=== PATIENT | female | born 1955 | race Caucasian/White ===

== ENCOUNTER 2020-05-24 07:16 | Outpatient (CLI) | payer OTHER, SELFPAY ==
--- NOTE | ~2020-05-24 | MM_ITS ---
EXAMINATION: MM screening devi BI w jeancarlos HISTORY: Screening mammogram TECHNIQUE: Craniocaudal and mediolateral oblique 3-D tomosynthesis images were obtained and synthetic 2-D images were generated. CAD analysis was submitted and interpreted. COMPARISON: 05/10/2019 diagnostic right mammogram and limited right breast ultrasound 04/21/2019, 02/15/2018, 07/15/2016 bilateral digital screening mammogram examinations BREAST PARENCHYMAL COMPOSITION: The breasts are extremely dense, which lowers the sensitivity of mamm ography. FINDINGS: Occasional benign calcifications. There is no evidence of suspicious mass, calcification, o r architectural distortion to suggest malignancy in either breast. There has been no suspicious inter suzan change. IMPRESSION: 1. No mammographic evidence of malignancy. 2. Recommend routine screening mammography in one year. BI-RADS Category 2: Benign finding(s). Reviewed, dictated and finalized at location A. INTERN
== END 2020-05-24 07:17 | disposition home or self-care (01) ==
LOC: ANHIMG 07:18
PROVIDERS: PCP Family Medicine; Visit Provider Family Medicine
DX: Z12.31 Encounter for screening mammogram for malignant neoplasm of breast (principal)
CPT/HCPCS: 77063; 77067

== ENCOUNTER 2020-06-14 08:49 | Outpatient (CLI) | payer OTHER, SELFPAY ==
--- NOTE | ~2020-06-14 | DEXA_ITS ---
Bone Density Report Name: Emily Gar Age: 65 Sex: Female Ethnicity: White Date of : 1955 Indication: osteopenia; height loss; Referring Provider: KATYA BELTRE Study: Bone densitometry was performed. Exam Date: June 14, 2020 Accession number: [id number] Bone Density: Region BMD T-score Z-score Classification AP Spine (L1, L2, L3) 0.783 -2.1 -0.5 Osteopenia Femoral Neck (Left) 0.750 -0.9 0.6 Normal Total Hip (Left) 0.871 -0.6 0.6 Normal Total Hip Bilateral Avg 0.896 -0.4 0.8 Normal Femoral Neck (Right) 0.792 -0.5 1.0 Normal Total Hip (Right) 0.920 -0.2 1.0 Normal World Health Organization criteria for BMD impression classify patients as: Normal (T-score at or above -1.0), Osteopenia (T-score between -1.0 and -2.5), or Osteoporosis (T-score at or below -2.5). 10-year Fracture Risk(1): Major Osteoporotic Fracture 7.0% Hip Fracture 0.5% Reported Risk Factors: [place] (), Neck BMD=0.750, BMI=21.5 (1) FRAX(R) Version 3.08. Fracture probability calculated for an untreated patient. Fracture probability may be lower if the patient has received treatment. Previous Exams: Region Exam Age BMD T-score BMD Change BMD Change Date g/cm2 vs Baseline vs Previous AP Spine(L1, L2, L3) 06/14/2020 65 0.783 -2.1 -0.080(-9.2%)# -0.062(-7.4%)* 02/15/2018 62 0.845 -1.6 -0.017(-2.0%)# 0.015(1.8%) 07/12/2015 60 0.830 -1.7 -0.032(-3.8%)# -0.108(-11.5%) 06/30/2013 58 0.938 -0.7 0.076(8.8%)# 0.005(0.6%) 06/30/2011 56 0.933 -0.8 0.071(8.2%)# 0.071(8.2%)# 05/31/2009 54 0.862 -1.4 Total Hip(Left) 06/14/2020 65 0.871 -0.6 -0.008(-0.9%)# -0.025(-2.8%) 02/15/2018 62 0.896 -0.4 0.017(2.0%)# 0.018(2.1%) 07/12/2015 60 0.878 -0.5 -0.001(-0.1%)# 0.020(2.4%)# 06/30/2013 58 0.858 -0.7 -0.021(-2.4%)# 0.002(0.3%) 06/30/2011 56 0.855 -0.7 -0.023(-2.7%)# -0.023(-2.7%)# 05/31/2009 54 0.879 -0.5 Total Hip(Right) 06/14/2020 65 0.920 -0.2 0.054(6.2%)# -0.011(-1.2%) 02/15/2018 62 0.931 -0.1 0.065(7.5%)# 0.014(1.5%) 07/12/2015 60 0.917 -0.2 0.051(5.9%)# 0.072(8.6%)# 06/30/2013 58 0.845 -0.8 -0.022(-2.5%)# -0.009(-1.0%) 06/30/2011 56 0.854 -0.7 -0.013(-1.5%)# -0.013(-1.5%)# 05/31/2009 54 0.867 -0.6 *Denotes significance at 95% confidence level, LSC for AP Spine = 0.022 g/cm2, LSC for Total Hip = 0.027 g/cm2 Clinical Information Provided by Patient: Has used the fo
== END 2020-06-14 08:50 | disposition home or self-care (01) ==
LOC: ANHIMG 08:51
PROVIDERS: PCP Family Medicine; Visit Provider Family Medicine
DX: M85.88 Other specified disorders of bone density and structure, other site (principal)
CPT/HCPCS: 77080

== ENCOUNTER 2021-06-30 07:27 | Outpatient (CLI) | payer MEDICARE, SELFPAY ==
--- NOTE | ~2021-06-30 | MM_ITS ---
EXAMINATION: MM screening devi BI w jeancarlos HISTORY: Screening mammogram, family history of breast cancer in her mother. TECHNIQUE: Craniocaudal and mediolateral oblique 3-D tomosynthesis images were obtained and synthetic 2-D images were generated. CAD analysis was submitted and interpreted. COMPARISON: 05/24/2020, 05/10/2019, 04/21/2019, 02/15/2018 BREAST PARENCHYMAL COMPOSITION: The breasts are extremely dense, which lowers the sensitivity of mamm ography. FINDINGS: There is no evidence of suspicious mass, calcification, or architectural distortion to sugg est malignancy in either breast. There has been no suspicious interval change. IMPRESSION: 1. No mammographic evidence of malignancy. 2. Recommend routine screening mammography in one year. BI-RADS Category 1: Negative Reviewed, dictated and finalized at location A. F PHARMACIST
== END 2021-06-30 07:28 | disposition home or self-care (01) ==
LOC: ANHIMG 07:29
PROVIDERS: PCP Family Medicine; Visit Provider Physician Assistant
DX: Z12.31 Encounter for screening mammogram for malignant neoplasm of breast (principal)
CPT/HCPCS: 77063; 77067

== ENCOUNTER → 2022-01-11 15:58 | Outpatient (CLI) | payer MEDICARE, SELFPAY ==
--- NOTE | ~2022-01-11 | XR_ITS ---
EXAM: XR knee RT min 4V DATE: 01/11/2022 16:11 HISTORY: NO INJURY MEDIAL ANTERIOR RIGHT KNEE PAIN . COMPARISON: None available. FINDINGS: Decreased mineralization. No fracture or dislocation. No lytic or blastic lesion. Moderate medial and severe lateral joint space narrowing. Mild tricompartmental osteophytosis. Small volume j oint effusion. No erosion or periosteal change. Soft tissues within normal limits. IMPRESSION: Tricompartmental knee osteoarthritis, severe in the lateral compartment. Reviewed, dictated and finalized at location K. IMPRESSION: Tricompartmental knee osteoarthritis, severe in the lateral compart ment.
== END ==
PROVIDERS: PCP Family Medicine; Visit Provider Family Medicine
DX: M25.561 Pain in right knee (principal); M17.11 Unilateral primary osteoarthritis, right knee
CPT/HCPCS: 73564

== ENCOUNTER 2022-06-08 07:46 | Outpatient (CLI) | payer MEDICARE, SELFPAY ==
--- NOTE | ~2022-06-08 | US_ITS ---
EXAMINATION: US right upper quadrant DATE: 06/08/2022 08:31 INDICATION: Abdominal pain. TECHNIQUE: Multiple grayscale and Doppler ultrasound images of the abdomen were obtained. COMPARISON: None FINDINGS: The visualized portions of the head, body, and tail of the pancreas are normal. The liver i s normal without focal lesion. There is normal flow in main portal vein. The gallbladder is normal in size. No gallstones or gallbladder wall thickening. There was no sonographic Toribio sign. The common duct is normal and measures 3 mm . IMPRESSION: 1. Normal right upper quadrant ultrasound. Reviewed, dictated and finalized at location A. TERIA FOOD SERVER
== END 2022-06-08 07:47 | disposition home or self-care (01) ==
PROVIDERS: PCP Family Medicine; Visit Provider Family Medicine
DX: R10.84 Generalized abdominal pain (principal)
CPT/HCPCS: 76705

== ENCOUNTER 2022-07-08 10:10 | Day surgery (SDC) | payer MEDICARE, SELFPAY ==
[2022-06-16 10:21] VITALS: BMI 21.9
[2022-06-17 13:51] VITALS: BMI 21.2
[2022-07-08 11:50] VITALS: BP 161/76; PULSE 60; RESP 16; TEMP 36.3; O2SAT 100
[2022-07-08] MEDS: LACTATED RINGERS 1,000 ML 150 ML IV CONT (12:20)
--- NOTE | 2022-07-08 12:24 | P.PNAN_ITS ---
Anes - Initial Pre Proc Eval Procedure: Operation Date: 07/08/22 13:00 Proposed Procedures p Screening Colonoscopy - Skip Stoll MD Date/Time: 07/08/22 12:24 Surgeon: Skip Stoll MD Pre Op Diagnosis: Neoplasm Screening Patient Data Age: 67 Gender: F Height: 2.02 m Weight: 71 kg Last Vital Signs Temp 36.3 C L 07/08/22 11:50 Pulse 60 07/08/22 11:50 Resp 16 07/08/22 11:50 BP 161/76 H 07/08/22 11:50 Pulse Ox 100 07/08/22 11:50 O2 Del Method Room Air 07/08/22 11:50 Allergies Allergy/AdvReac Type Severity Reaction Status Date / Time No Known Allergies Allergy Verified 07/08/22 11:48 Home Medications Medication Instructions Recorded Confirmed Type sodium,potassium,mag sulfates 17.5 See Rx Instructions PO .COMPLEX 06/16/22 Rx gram-3.13 gram-1.6 gram oral soln #354 mL (Suprep Bowel Prep Kit) levothyroxine 88 mcg tablet 88 mcg PO DAILY 06/17/22 07/08/22 History magnesium 30 mg tablet 30 mg PO DAILY 06/17/22 07/08/22 History omega-3 fatty acids 1,000 mg PO DAILY 06/17/22 07/08/22 History Patient hx anesthesia problems: none Family hx anesthesia problems: none Results Review: All pre-operative results and documents have been reviewed as part of the pre- operative evaluation. [facility] Past Medical History Medical History (Updated 07/08/22 @ 12:24 by Samuel Pena MD) Hypothyroidism Surgical History Surgical History (Updated 07/08/22 @ 12:27 by Samuel Pena MD) H/O colonoscopy History of D&C Social History Social History Smoking status: Never smoker Alcohol intake: current Substance use: never Substance use type: does not use Living arrangements: with family Spiritual care concerns: No Anes - Eval Final PreProcedure Day of Procedure 07/08/22 12:24 Patient weight: thin Heart: regular rate and rhythm Lungs: clear to auscultation Airway: Mallampati scale class II Neurological: alert and oriented Last oral intake: >/= 8 hours ASA classification: II Emergent: no Anesthetic plan: proceed Anesthesia type and monitoring: general GIVS and standard monitoring Results Review: All pre-operative results and documents have been reviewed as part of the pre- operative evaluation. Informed Consent: The patient's anesthetic plan and its attendant risks and benefits were discussed with the patient/family/POA. Questions were solicited and answers provided to the satisfaction of the patient/family/POA.
--- NOTE | 2022-07-08 12:45 | P.HP_ITS ---
History of Present Illness History of Present Illness Consent: Risks, benefits, and alternatives have been discussed and questions answered. Patient agrees to proceed with procedure. Chief complaint: Neoplasm Screening Narrative: Emily Gar is a 67 year old female Presents for screening colonoscopy. Patient's current weight appetite and bowel movements are normal. Patient denies abdominal pain. She has had no bleeding. Family history noncontributor y. Patient has previous colonoscopy 10 years ago was unremarkable. Review of Systems Review of Systems: Review of systems noncontributory. [facility] Past Medical History Medical History (Updated 07/08/22 @ 12:46 by Skip Stoll MD) Hypothyroidism Surgical History Surgical History (Updated 07/08/22 @ 12:27 by Samuel Pena MD) H/O colonoscopy History of D&C Social History Social History Smoking status: Never smoker Alcohol intake: current Substance use: never Substance use type: does not use Living arrangements: with family Spiritual care concerns: No Meds Home Medications and Allergies Home Medications Medication Instructions Recorded Confirmed Type sodium,potassium,mag sulfates 17.5 See Rx Instructions PO .COMPLEX 06/16/22 Rx gram-3.13 gram-1.6 gram oral soln #354 mL (Suprep Bowel Prep Kit) levothyroxine 88 mcg tablet 88 mcg PO DAILY 06/17/22 07/08/22 History magnesium 30 mg tablet 30 mg PO DAILY 06/17/22 07/08/22 History omega-3 fatty acids 1,000 mg PO DAILY 06/17/22 07/08/22 History Allergies Allergy/AdvReac Type Severity Reaction Status Date / Time No Known Allergies Allergy Verified 07/08/22 11:48 Vital Signs Vital Signs - 24 hr 07/08/22 11:50 Temperature 97.4 F L Pulse Rate 60 Respiratory Rate 16 Blood Pressure 161/76 H Pulse Oximetry 100 Oxygen Delivery Room Air Exam Narrative: Physical exam reveals patient to be alert. Vital signs stable. HEENT exam is unremarkable. Patient is anicteric. Lungs are clear to the auscultation and percussion. Heart is without murmur or extra sounds. Abdomen bowel sounds are present soft nontender with no organomegaly. Digital external rectal exam is normal. Assessment and Plan Assessment and plan (1) Encounter for screening colonoscopy: Code(s): Z12.11 - Encounter for screening for malignant neoplasm of colon Status: Acute Assessment and Plan: Patient presents today for screening colonoscopy. She appears to be at average risk for colon polyps. Further recommendations may be given after endoscopy.
[2022-07-08] MEDS: SIMETHICONE ORAL SUSPENSION 20 MG/0.3 ML 30 ML BOTTLE 0.6 ML IRRIGATION (13:04)
[2022-07-08 13:15] VITALS: BP 126/77; PULSE 64; RESP 15; O2SAT 100
--- NOTE | 2022-07-08 13:24 | WPDANESPN ---
Anes - Prog Note Post-Op Date/Time: 07/08/22 13:24 Cardiovascular status: normal Respiratory status: normal Airway patency: baseline Mental status: baseline Post-Op hydration status: normal Vital Signs: Last Vital Signs Temp 36.3 C L 07/08/22 11:50 Pulse 64 07/08/22 13:15 Resp 15 07/08/22 13:15 BP 126/77 07/08/22 13:15 Pulse Ox 100 07/08/22 13:15 O2 Del Method Room Air 07/08/22 13:15 Pain Score (VAS): 0/10 I/O: Intake & Output 07/07/22 07/08/22 07/08/22 23:59 07:59 15:59 Intake Total 400 Balance 400 Patient Feedback: Patient satisfied with anesthetic care.
[2022-07-08 13:25] VITALS: BP 142/86; PULSE 57; RESP 15; O2SAT 100
[2022-07-08 13:35] VITALS: BP 147/83; PULSE 61; RESP 16; O2SAT 99
== END 2022-07-08 13:52 | disposition home or self-care (01) ==
PROVIDERS: PCP Family Medicine; Visit Provider Internal Medicine Gastroenterology
PROC: 0DJD8ZZ Inspection of Lower Intestinal Tract, Via Natural or Artificial Opening Endoscopic (ICD-10-PCS; CPT 45378; principal; 2022-07-08 13:00)
DX: Z12.11 Encounter for screening for malignant neoplasm of colon (principal)
CPT/HCPCS: 45378

== ENCOUNTER 2022-07-29 09:41 | Outpatient (CLI) | payer MEDICARE, SELFPAY ==
--- NOTE | ~2022-07-29 | MM_ITS ---
EXAMINATION: MM screening devi BI w jeancarlos HISTORY: Screening mammogram TECHNIQUE: Craniocaudal and mediolateral oblique 3-D tomosynthesis images were obtained and synthetic 2-D images were generated. CAD analysis was submitted and interpreted. COMPARISON: 06/30/2021, 05/24/2020 bilateral screening mammogram examinations BREAST PARENCHYMAL COMPOSITION: The breasts are heterogeneously dense, which may obscure small masses . FINDINGS: Occasional bilateral benign calcifications. Approximately 4 x 7 mm circumscribed opacity is noted in the lower outer quadrant of the right breast on MLO view. Diagnostic right mammogram with skin marker on any skin lesion in the area is recommend ed, with ultrasound if required. Otherwise there is no evidence of suspicious mass, calcification, or architectural distortion to sugg est malignancy in either breast. There has been no other suspicious interval change. IMPRESSION: 1. 4 x 7 mm opacity in the lower outer right breast 2. Diagnostic right mammogram (with skin lesion marker if appropriate) is recommended, with ultrasoun d if required BI-RADS Category 0: Incomplete: Needs additional imaging evaluation. Reviewed, dictated and finalized at location A. RONMENTAL SERVICES SPECIALIST IMPRESSION: 1. 4 x 7 mm opacity in the lower outer right breast 2. Diagnostic right mammogram (with skin lesion marker if appropriate) is recom mended, with ultrasound if required BI-RADS Category 0: Incomplete: Needs additional imaging evaluation.
--- NOTE | ~2022-07-29 | DEXA_ITS ---
Bone Density Report Name: DANICA ECHEVERRIA Age: 67 Sex: Female Ethnicity: White Date of : 1955 Indication: osteopenia; cancer; postmenopausal Referring Provider: MARIBELL FLORES Study: Bone densitometry was performed. Exam Date: July 29, 2022 Accession number: [id number] Bone Density: Region BMD T-score Z-score Classification AP Spine(L1-L4) 0.838 -1.9 0.0 Osteopenia Femoral Neck (Left) 0.722 -1.1 0.4 Osteopenia Total Hip (Left) 0.901 -0.3 1.0 Normal Femoral Neck (Right) 0.719 -1.2 0.4 Osteopenia Total Hip (Right) 0.871 -0.6 0.7 Normal Total Hip Mean 0.886 -0.5 0.9 Normal World Health Organization criteria for BMD impression classify patients as: Normal (T-score at or above -1.0), Osteopenia (T-score between -1.0 and -2.5), or Osteoporosis (T-score at or below -2.5). 10-year Fracture Risk(1): Major Osteoporotic Fracture 8.1% Hip Fracture 0.8% Reported Risk Factors: [place] (), Neck BMD=0.719, BMI=22.4 (1) FRAX(R) Version 3.08. Fracture probability calculated for an untreated patient. Fracture probability may be lower if the patient has received treatment. Previous Exams: Region Exam Age BMD T-score BMD Change BMD Change Date g/cm2 vs Baseline vs Previous AP Spine (L1-L4) 07/29/2022 67 0.838 -1.9 -0.087 (-9.4%) -0.065 (-7.2%) 02/15/2018 62 0.903 -1.3 -0.021 (-2.3%) 0.021 (2.4%) 07/12/2015 60 0.882 -1.5 -0.043 (-4.6%) -0.043 (-4.6%) 06/30/2011 56 0.925 -1.1 Total Hip(Left) 07/29/2022 67 0.901 -0.3 0.046 (5.4%)# 0.030 (3.5%)* 06/14/2020 65 0.871 -0.6 0.016 (1.8%)# -0.025 (-2.8%) 02/15/2018 62 0.896 -0.4 0.041 (4.8%)# 0.018 (2.1%) 07/12/2015 60 0.878 -0.5 0.023 (2.6%)# 0.023 (2.6%)# 06/30/2011 56 0.855 -0.7 Total Hip(Right) 07/29/2022 67 0.871 -0.6 0.017 (2.0%)# -0.050 (-5.4%) 06/14/2020 65 0.920 -0.2 0.067 (7.8%)# -0.011 (-1.2%) 02/15/2018 62 0.931 -0.1 0.078 (9.1%)# 0.014 (1.5%) 07/12/2015 60 0.917 -0.2 0.064 (7.5%)# 0.064 (7.5%)# 06/30/2011 56 0.854 -0.7 *Denotes significance at 95% confidence level, LSC for AP Spine = 0.022 g/cm2, LSC for Total Hip = 0.027 g/cm2 # Denotes dissimilar scan types or analysis methods Clinical Information Provided by Patient: Has used the following medications: Vitamin D, Calcium Has the following medical conditions: Cancer Patient maximum height was 72 Drinks caffeinated beverages Onset of menses at age 17 Number of child
== END 2022-07-29 09:42 | disposition home or self-care (01) ==
LOC: ANHIMG 09:44
PROVIDERS: PCP Family Medicine; Visit Provider Physician Assistant
DX: Z12.31 Encounter for screening mammogram for malignant neoplasm of breast (principal); Z78.0 Asymptomatic menopausal state; R92.8 Other abnormal and inconclusive findings on diagnostic imaging of breast; M85.89 Other specified disorders of bone density and structure, multiple sites
CPT/HCPCS: 77063; 77067; 77080

== ENCOUNTER 2022-08-13 11:43 | Outpatient (CLI) | payer MEDICARE, SELFPAY ==
--- NOTE | ~2022-08-13 | MM_ITS ---
EXAMINATION: MM diagnostic devi RT w jeancarlos HISTORY: Right breast asymmetry on screening mammogram TECHNIQUE: Additional 3-D tomosynthesis images of the right breast were performed and synthetic 2-D i mages were generated. CAD analysis was submitted and interpreted. COMPARISON: 07/29/2022, 06/30/2021, 05/24/2020 FINDINGS: No suspicious mass, calcification, or architectural distortion are identified to suggest ma lignancy. There is a mole of the right breast corresponding to the area of concern on screening mammo gram. IMPRESSION: 1. No mammographic evidence of malignancy. 2. Recommend routine screening mammography in one year. BI-RADS Category 1: Negative Reviewed, dictated and finalized at location A. WOOD FLOOR REFINISHER
== END 2022-08-13 11:44 | disposition home or self-care (01) ==
LOC: ANHIMG 11:46
PROVIDERS: PCP Family Medicine; Visit Provider Family Medicine
DX: R92.8 Other abnormal and inconclusive findings on diagnostic imaging of breast (principal)
CPT/HCPCS: 77061; 77065; G0279

== ENCOUNTER 2023-06-10 16:37 | Outpatient (CLI) | payer MEDICARE, SELFPAY ==
--- NOTE | ~2023-06-10 | XR_ITS ---
XR cervical spine 4-5V DATE: 06/10/2023 17:01 INDICATION: Neck pain TECHNIQUE: AP, open-mouth, lateral, flexion and extension lateral views COMPARISON: None FINDINGS: There is approximately 2 mm anterolisthesis at C3-4 and 1 mm anterolisthesis at C4-5 in fle xion, reduced in extension. C1 and C2 are normally aligned and the odontoid process is intact. No fracture or dislocation or lock ed facet or prevertebral soft tissue swelling is detected. There is severe degenerative disc disease and prominent posterior spurring at C5-6. The remaining cer vical interspaces appear relatively preserved. There is uncovertebral joint spurring particularly at C5-6 bilaterally. IMPRESSION: Severe degenerative disc disease and uncovertebral joint spurring at C5-6 2 mm and 1 mm anterolisthesis at C3-4 and C4-5, respectively, in flexion, reduced in extension Reviewed, dictated and finalized at location B. CTOR QUALITY SYSTEMS IMPRESSION: Severe degenerative disc disease and uncovertebral joint spurring a t C5-6 2 mm and 1 mm anterolisthesis at C3-4 and C4-5, respectively, in flexion, reduc ed in extension
--- NOTE | ~2023-06-10 | XR_ITS ---
XR shoulder RT min 2V DATE: 06/10/2023 17:02 INDICATION: Right shoulder pain TECHNIQUE: 4 views COMPARISON: None FINDINGS: There is mild osteoarthritic spurring at the glenohumeral joint consistent with mild glenoh umeral osteoarthritis. Normal alignment at the acromioclavicular and glenohumeral joints. No fracture or dislocation, periosteal reaction or bone destruction or abnormal soft tissue calcification of the right shoulder is detected. IMPRESSION: Mild right glenohumeral osteoarthritis Reviewed, dictated and finalized at location B. R MACHINE OFFBEARER
== END 2023-06-10 16:38 | disposition home or self-care (01) ==
LOC: ANHIMG 16:38
PROVIDERS: PCP Family Medicine; Visit Provider Physician Assistant
DX: M19.011 Primary osteoarthritis, right shoulder (principal); M43.02 Spondylolysis, cervical region; M50.322 Other cervical disc degeneration at C5-C6 level
CPT/HCPCS: 72050; 73030

== ENCOUNTER → 2023-07-07 15:12 | Outpatient (CLI) | payer MEDICARE, SELFPAY ==
--- NOTE | ~2023-07-07 | MR_ITS ---
EXAMINATION: MR cervical spine wo con DATE: 07/07/2023 15:39 INDICATION: Cervical radiculopathy. TECHNIQUE: Magnetic resonance imaging (MRI) of the cervical spine was performed without intravenous c ontrast. Sequences included sagittal T2-weighted FSE, sagittal T2-weighted FS FSE, sagittal T1-weight ed FSE, axial MERGE, and axial T2-weighted FSE. COMPARISON: Cervical spine radiographs 06/10/2023 FINDINGS: There is 4 degrees dextrocurvature of cervical spine. There is 2 mm retrolisthesis of C5 on C6. Vertebral body heights are normal. There is severely decreased disc height at C5-C6 with endplat e remodeling. The spinal cord signal intensity is normal. The following disc levels are specifically discussed: C2-C3: The disc does not extend beyond the endplate margin. There is no uncovertebral joint osteoarth ritis. There is moderate right and severe left facet joint osteoarthritis. There is mild left neural foraminal stenosis. There is no central canal stenosis. C3-C4: The disc does not extend beyond the endplate margin. There is mild right uncovertebral joint o steoarthritis. There is severe bilateral facet joint osteoarthritis. There is mild right neural kim inal stenosis. There is no central canal stenosis. C4-C5: The disc does not extend beyond the endplate margin. There is mild bilateral uncovertebral laura nt osteoarthritis. There is severe bilateral facet joint osteoarthritis. There is no neural foraminal stenosis. There is no central canal stenosis. C5-C6: The disc is bulging. There is severe bilateral uncovertebral joint osteoarthritis. There is mo derate bilateral facet joint osteoarthritis. There is moderate right and mild left neural foraminal s tenosis. There is mild central canal stenosis. C6-C7: The disc does not extend beyond the endplate margin. There is mild bilateral uncovertebral laura nt osteoarthritis. There is severe right and moderate left facet joint osteoarthritis. There is mild right neural foraminal stenosis. There is no central canal stenosis. C7-T1: There is a right central extrusion. There is no uncovertebral joint osteoarthritis. There is m oderate right and severe left facet joint osteoarthritis. There is mild bilateral neural foraminal st enosis. There is no central canal stenosis. IMPRESSION: 1. Severe spondylosis at C5-C6 and mild spondylosis at other levels. Reviewed, dictated and finalized at location A. T PLEATER
== END ==
PROVIDERS: PCP Family Medicine; Visit Provider Orthopaedic Surgery
DX: M43.02 Spondylolysis, cervical region (principal)
CPT/HCPCS: 72141

== ENCOUNTER → 2023-08-01 11:05 | Outpatient (CLI) | payer MEDICARE, SELFPAY ==
--- NOTE | ~2023-08-01 | MR_ITS ---
MRI of the right shoulder Technique: Axial proton-density fat-sat images, coronal proton density fat-sat and T2 fat-sat images, and sagittal T1-weighted and T2 fat-sat images were acquired. Clinical History: Pain Findings: There is minimal AC joint degenerative change. Coracoclavicular, coracoacromial, coracohume ral ligaments are intact. There is a probable 3 mm linear low-grade partial thickness articular surface tear at the distal supr aspinatus tendon insertion. There is a focal low-grade interstitial tear along the posterior aspect o f the supraspinatus tendon. Infraspinatus tendon is intact. There is mild tendinosis of these tendons . Subscapularis tendon is intact, mild tendinosis. Tendon of the long head of the biceps is intact. Probable focal superior labral tear. Inferior glenohumeral ligament is intact. There is mild chondral thinning of the glenohumeral joint. No significant joint effusion. There is minimal fluid in the subacromial/subdeltoid bursa. No muscle atrophy or edema. Impression: 3 mm linear low-grade partial thickness articular surface tear at the distal supraspinatus tendon ins ertion. Separate focal low-grade interstitial tear at the posterior aspect of the supraspinatus tendon. Rotator cuff tendinosis. Reviewed, dictated and finalized at [facility]. CIATE DIRECTOR Impression: 3 mm linear low-grade partial thickness articular surface tear at the distal pitts praspinatus tendon insertion. Separate focal low-grade interstitial tear at the posterior aspect of the supra spinatus tendon. Rotator cuff tendinosis.
== END ==
PROVIDERS: PCP Family Medicine; Visit Provider Orthopaedic Surgery
DX: M75.111 Incomplete rotator cuff tear or rupture of right shoulder, not specified as traumatic (principal); M75.31 Calcific tendinitis of right shoulder
CPT/HCPCS: 73221

== ENCOUNTER 2023-09-01 09:14 | Outpatient (CLI) | payer MEDICARE, SELFPAY ==
--- NOTE | ~2023-09-01 | MR_ITS ---
EXAMINATION: MR knee RT wo con DATE: 09/01/2023 09:45 INDICATION: Right knee pain. TECHNIQUE: Magnetic resonance imaging (MRI) of the right knee was performed without intravenous contr ast. Sequences included axial PD-weighted FS FSE, coronal PD-weighted FSE and PD-weighted FS FSE, sag ittal PD-weighted FSE, and sagittal T2-weighted FS FSE. COMPARISON: None. FINDINGS: Medial compartment: There is an undersurface horizontal tear of body and posterior horn of medial meniscus. There is shal low partial-thickness cartilage loss of tibial condyle. There is full-thickness cartilage loss of fem oral condyle involving the central articular surface. Lateral compartment: There is a complex tear involving anterior horn, body, and posterior horn of lateral meniscus. There is full-thickness cartilage loss of tibial condyle involving the central and lateral articular surfac e with mild subchondral edema-like marrow signal intensity. There is full-thickness cartilage loss of femoral condyle involving the central and posterior articular surface with mild subchondral edema-li ke marrow signal intensity. Patellofemoral compartment: There is deep partial thickness cartilage loss of patellar medial facet, median ridge, and lateral fa cet with mild subchondral edema-like marrow signal intensity. There is shallow partial-thickness cart ilage loss of trochlea. Ligaments and tendons: There is a complete tear of anterior cruciate ligament. Posterior cruciate ligament is normal. There are changes of prior sprains of medial collateral ligament and fibular collateral ligament characteri zed increased signal intensity proximally. There is mild patellar tendinopathy. Fluid: There is a small knee joint effusion. There is a small ruptured Herrmann's cyst. IMPRESSION: 1. 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 2. Complete tear of anterior cruciate ligament. 3. Tears of medial and lateral menisci. 4. Small knee joint effusion. 5. Small ruptured Herrmann's cyst. Reviewed, dictated and finalized at location A. IMPRESSION: 1. 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 2. Complete tear of anterior cruciate ligament. 3. Tears of medial and lateral menisci. 4. Small knee joint effusion. 5. Small ruptured Herrmann's cyst.
== END 2023-09-01 09:15 ==
LOC: MICIMG 09:15
PROVIDERS: PCP Family Medicine; Visit Provider Physician Assistant
DX: M25.561 Pain in right knee (principal); M22.2X1 Patellofemoral disorders, right knee; S83.511A Sprain of anterior cruciate ligament of right knee, initial encounter; S83.281A Other tear of lateral meniscus, current injury, right knee, initial encounter; S83.241A Other tear of medial meniscus, current injury, right knee, initial encounter; M25.461 Effusion, right knee; M71.21 Synovial cyst of popliteal space [Baker], right knee
CPT/HCPCS: 73721

== ENCOUNTER 2023-09-13 13:53 | Outpatient (CLI) | payer MEDICARE, SELFPAY ==
--- NOTE | ~2023-09-13 | XR_ITS ---
XR knee RT min 4V 09/13/2023 14:10 Indication: Right knee pain Procedure: 4 views right knee Comparison: 01/11/2022 Findings: There is tricompartment osteoarthritis, most advanced in lateral compartment. No fracture o r traumatic malalignment. No significant joint effusion. No foreign bodies. There is a possible old h ealed lateral tibial plateau fracture. 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 Reviewed, dictated and finalized at location A. 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
== END 2023-09-13 13:54 ==
LOC: MICIMG 13:54
PROVIDERS: PCP Orthopaedic Surgery; Visit Provider Physician Assistant
DX: M17.11 Unilateral primary osteoarthritis, right knee (principal)
CPT/HCPCS: 73564

== ENCOUNTER 2023-11-09 09:39 | Outpatient (CLI) | payer MEDICARE, SELFPAY ==
--- NOTE | ~2023-11-09 | MM_ITS ---
EXAMINATION: MM screening devi BI w jeancarlos HISTORY: Screening TECHNIQUE: Craniocaudal and mediolateral oblique 3-D tomosynthesis images were obtained and synthetic 2-D images were generated. CAD analysis was submitted and interpreted. COMPARISON: Comparison to multiple prior studies sequentially, with oldest reviewed study dated 04/06. BREAST PARENCHYMAL COMPOSITION: Dense: The breasts are heterogeneously dense, which may obscure small masses FINDINGS: There is no evidence of suspicious mass, calcification, or architectural distortion to sugg est malignancy in either breast. There has been no suspicious interval change. IMPRESSION: 1. No mammographic evidence of malignancy. 2. Recommend routine screening mammography in one year. BI-RADS Category 1: Negative Reviewed, dictated and finalized at location B.
== END 2023-11-09 09:40 | disposition home or self-care (01) ==
LOC: ANHIMG 09:43
PROVIDERS: PCP Physician Assistant; Visit Provider Physician Assistant
DX: Z12.31 Encounter for screening mammogram for malignant neoplasm of breast (principal)
CPT/HCPCS: 77063; 77067

== ENCOUNTER 2024-01-24 17:39 | Emergency (ER) | payer MEDICARE, SELFPAY ==
--- NOTE | ~2024-01-24 | XR_ITS ---
EXAMINATION: XR knee RT min 4V DATE: 01/24/2024 19:41 INDICATION: Right knee pain post fall TECHNIQUE: Anteroposterior, 2 oblique and crosstable lateral views of the right knee were obtained COMPARISON: None. FINDINGS: Alignment is normal. No fracture. Severe joint space narrowing the lateral compartment seen on the l ateral imaging. Small marginal osteophytes in all 3 compartments. Minimal right knee joint effusion a t the suprapatellar pouch without layering lipohemarthrosis. Soft tissues are unremarkable. IMPRESSION: 1. Minimal right knee joint effusion with no acute osseous abnormality. 2. Tricompartmental osteoarthritis, severe in the lateral compartment. Reviewed, dictated and finalized at location A.
--- NOTE | ~2024-01-24 | XR_ITS ---
CORRECTED REPORT Changed LEFT to RIGHT under Impressions [facility] [place] 01/30/24 This report was recreated on 01/30/24. Original report was C EXAMINATION: XR ankle RT min 3V, XR foot RT min 3V DATE: 01/24/2024 18:09 INDICATION: Twisting right ankle injury TECHNIQUE: 1. Anteroposterior, mortise and lateral view of the right ankle were obtained. 2. Dorsoplantar, oblique and lateral views of the right foot were obtained. COMPARISON: None. FINDINGS: There is an oblique fracture through the distal fibula with a fracture plane exiting medially at the level of the tibiotalar joint. 3-4 mm posterolateral displacement. No other fracture identified. Specifically the medial and posterior malleoli as well as the talar dome are intact. Ankle mortise remains congruent with no appreciable widening of the medial clear space. Typical pattern of mild polyarticular osteoarthritis at the right first metatarsophalangeal and a few tarsometatarsal and interphalangeal joints. There is an ankle joint effusion and prominent soft tissue swelling about the lateral malleolus. IMPRESSION: 1. . 4 mm posterior displacement of an oblique fracture of the distal RIGHT fibula consistent with a Maher type B injury pattern. Reviewed, dictated and finalized at location A. MTDD IMPRESSION: 1. . 4 mm posterior displacement of an oblique fracture of the distal left fibu la consistent with a Maher type B injury pattern.
[2024-01-24 17:53] VITALS: BP 150/64; PULSE 62; RESP 16; TEMP 36.4; O2SAT 95
--- NOTE | 2024-01-24 18:00 | ED.LOWEXIN ---
HPI - Extremity Injury (Lower) General Chief Complaint: Extremity Injury, Lower Stated Complaint: R foot injury Time Seen by Provider: 01/24/24 19:05 Focused HPI: GENERAL: Well-appearing, well-nourished, and in no acute distress. HEAD: Normocephalic, atraumatic. CHEST: Clear to auscultation. No respiratory distress. HEART: Regular rate and rhythm. NEURO: Alert and oriented x3. Patient screened in triage and initial orders placed. Additional care and disposition to be based upon diagnostic testing and treatment. 68-year-old female presents emergency room for evaluation of right ankle injury. Patient states that she misstepped walking down the stairs twisting her right ankle. Injury occurred just prior to arrival. Patient placed ankle and foot into an Brad bandage. Unable to bear weight. Related Data Home Medications Medication Instructions Recorded Confirmed magnesium 30 mg tablet 30 mg PO DAILY 06/17/22 09/30/23 mecobalamin (vitamin B12) 1,000 1,000 mcg PO DAILY 03/16/23 09/30/23 mcg lozenges naproxen sodium 220 mg capsule 220 mg PO Q12H PRN 03/16/23 09/30/23 omega 3-uju-gku-fish oil 1,200 mg cap PO 03/16/23 09/30/23 (144 mg-216 mg) capsule (Fish Oil) ascorbate calcium (vitamin C) 500 500 mg PO DAILY 09/30/23 09/30/23 mg tablet Allergies Allergy/AdvReac Type Severity Reaction Status Date / Time No Known Allergies Allergy Verified 01/24/24 18:52 PMFSH Past Medical History Medical History Anemia Hypothyroidism Surgical History Surgical History H/O colonoscopy History of D&C 1985 History of surgical removal of skin lesion basal cell cancer left back 04/09/2011 Family History Family History Father Hypertension Atrial fibrillation Mother Hypertension Congestive heart failure COPD (chronic obstructive pulmonary disease) Crohn's disease Grandparent Acute myocardial infarction Social History Social History Smoking status: Never smoker Alcohol intake: current Substance use: never Substance use type: does not use Do You Feel Safe in your Home?: Yes Lack of Transportation: No Lack of Food: Never True Current Housing: I Have Housing Concerned About Future Housing: No Difficulty Paying Gas/Electric Bills: No Difficulty Paying for Meds: No Currently Unemployed: No Education: Bachelor's Degree Living arrangements: with family Occupation/Education: retired Gender identity (if verbalized by the patient): Female Sexual Orientation (if Verbalized by the Patient): Straight or Heterosexual Spiritual care concerns: No Course Vital Signs Vital signs: Vital Signs Temperature 97.6 F 01/24/24 17:53 Pulse Rate 62 01/24/24 17:53 Respiratory Rate 16 01/24/24 17:53 Blood Pressure 150/64 H 01/24/24 17:53 Pulse Oximetry 95 01/24/24 17:53 Temperature 97.6 F 01/24/24 17:53 Pulse Rate 66 01/24/24 20:54 Respiratory Rate 15 01/24/24 20:54 Blood Pressure 152/74 H 01/24/24 20:54 Pulse Oximetry 100 01/24/24 20:54 Discharge Plan Discharge Clinical Impression: Fibula fracture, Osteoarthritis of right knee Patient Disposition: Home, Self-Care Condition: Stable Instructions: Antibiotic Form, Ankle Fracture (DC), Knee Pain (ED) Additional Instructions: you were evaluated in the emergency department for right knee and ankle pain after mechanical injury that occurred prior to arrival. The x-ray of your knee shows osteoarthritis but no broken bones. The x-ray of your ankle shows a break to your fibula and concern for deltoid ligament injury as discussed. Please wear the splint as directed and follow-up closely with the orthopedist he. You can take Tylenol 500 mg as needed
--- NOTE | 2024-01-24 19:34 | ED.LOWEXIN ---
HPI - Extremity Injury (Lower) General Chief Complaint: Extremity Injury, Lower Stated Complaint: R foot injury Time Seen by Provider: 01/24/24 19:05 History of Present Illness HPI Narrative: 68-year-old female presents to the emergency department for right ankle injury that occurred prior to arrival. Patient states she was walking up the stairs when she slipped and inverted her right ankle. States she landed on her right knee. She is reporting pain and swelling to the right ankle and minimal pain to the right knee. She denies hitting her head or losing consciousness, denies other injuries acquired. She has not taken anything for pain. patient has seen Dr. Magana in the past for knee injuries. Related Data Home Medications Medication Instructions Recorded Confirmed magnesium 30 mg tablet 30 mg PO DAILY 06/17/22 09/30/23 mecobalamin (vitamin B12) 1,000 1,000 mcg PO DAILY 03/16/23 09/30/23 mcg lozenges naproxen sodium 220 mg capsule 220 mg PO Q12H PRN 03/16/23 09/30/23 omega 1-oot-mrl-fish oil 1,200 mg cap PO 03/16/23 09/30/23 (144 mg-216 mg) capsule (Fish Oil) ascorbate calcium (vitamin C) 500 500 mg PO DAILY 09/30/23 09/30/23 mg tablet Allergies Allergy/AdvReac Type Severity Reaction Status Date / Time No Known Allergies Allergy Verified 01/24/24 18:52 Review of Systems Review of Systems: All systems reviewed & are unremarkable except as noted in HPI and below PMFSH Past Medical History Medical History Anemia Hypothyroidism Surgical History Surgical History H/O colonoscopy History of D&C 1985 History of surgical removal of skin lesion basal cell cancer left back 04/09/2011 Family History Family History Father Hypertension Atrial fibrillation Mother Hypertension Congestive heart failure COPD (chronic obstructive pulmonary disease) Crohn's disease Grandparent Acute myocardial infarction Social History Social History Smoking status: Never smoker Alcohol intake: current Substance use: never Substance use type: does not use Do You Feel Safe in your Home?: Yes Lack of Transportation: No Lack of Food: Never True Current Housing: I Have Housing Concerned About Future Housing: No Difficulty Paying Gas/Electric Bills: No Difficulty Paying for Meds: No Currently Unemployed: No Education: Bachelor's Degree Living arrangements: with family Occupation/Education: retired Gender identity (if verbalized by the patient): Female Sexual Orientation (if Verbalized by the Patient): Straight or Heterosexual Spiritual care concerns: No Exam Narrative: GENERAL: Well-appearing, well-nourished, and in no acute distress. HEAD: Normocephalic, atraumatic. ENT: Nares clear, no rhinorrhea or epistaxis. Mucous membranes moist. NECK: No midline cervical spinous tenderness, step-offs or deformities BACK: no midline thoracolumbar spinous tenderness, step-offs or deformities CHEST: Clear to auscultation. No respiratory distress. HEART: Regular rate and rhythm. No murmur heard. Normal peripheral pulses. EXTREMITIES: RLE: diffuse edema to the ankle with tenderness to the medial and lateral malleolus, mild ecchymosis developing over the lateral malleolus. DP pulses 2+. Sensation intact. Cap refill less than 2. Minimal tenderness to the right knee with full range of motion. No tenderness with hip remainder of lower extremity. Negative Daily's test. Compartments soft throughout SKIN: Warm, dry, no rash. NEURO: No focal deficits. Alert and oriented x3 Course Vital Signs Vital signs: Vital Signs Temperature 97.6 F 01/24/24 17:53 Pulse Rate 62 01/24/24 17:53 Respiratory Rate 16 01/24/24 17:53 B
[2024-01-24 20:54] VITALS: BP 152/74; PULSE 66; RESP 15; O2SAT 100
== END 2024-01-24 20:55 | disposition home or self-care (01) ==
PROVIDERS: Emergency Provider Physician Assistant; PCP Physician Assistant
DX: S82.831A Other fracture of upper and lower end of right fibula, initial encounter for closed fracture (principal); M17.11 Unilateral primary osteoarthritis, right knee; E03.9 Hypothyroidism, unspecified; Z86.2 Personal history of diseases of the blood and blood-forming organs and certain disorders involving the immune mechanism; W10.9XXA Fall (on) (from) unspecified stairs and steps, initial encounter; X50.9XXA Other and unspecified overexertion or strenuous movements or postures, initial encounter
CPT/HCPCS: 29515; 73564; 73610; 73630; 99284

== ENCOUNTER 2024-01-30 00:09 | Day surgery (SDC) | payer MEDICARE, SELFPAY ==
[2024-01-26 11:09] VITALS: BMI 21.4
--- NOTE | 2024-01-26 11:19 | PC.NURSE ---
Report to the Outpatient Waiting Room, entrance under the green pavilion located off [facility], at time _1pm_ on date _[id number]_. Planned Procedure Time: _3pm_.? Time changes happen often and if your time is changed the preop area will call you the afternoon before. - You and your visitor will be asked to self-screen and do not enter if you have any COVID symptoms. Please call surgeon if you need to reschedule. - A mask is optional within the hospital at this time. Patients may have clear liquids (water, carbonated beverages, clear teas, apple juice) until 3 hours prior to surgery with a maximum of 20 ounces. - No food from midnight until time of surgery and no smoking Take only the following medications with a SIP of water on the morning of surgery: ___Levothyroxine and if needed pain medicine DO NOT STOP ANY OF YOUR OTHER PRESCRIPTION MEDICATIONS PRIOR TO SURGERY EXCEPT THE FOLLOWING Medications to discontinue per physician ____Stop Naproxen now, Stop all vitamins and fish oil [phone]____ Please no make-up, nail [place], hairspray, perfume, deodorant, or body powder the day of surgery.? No jewelry (including any body piercings) or valuables the day of surgery, leave them at home.? Please take a shower or bath the night before, or the morning of, surgery with an antibacterial soap.? Wear comfortable, loose fitting clothing.? - Jewelry must be removed prior to entering the operating room.? Rings and piercings that are not removed may be cut off. - The hospital will not accept responsibility for valuables.? - Please leave all valuables, including medications, at home the day of surgery. If you are going home after surgery, a licensed home delivery driver must drive you home.? - NO public transportation without another adult if you receive anesthesia. - We recommend that an adult stay with you for 24 hours following discharge. - We also recommend that you do not drive, make important decision, drink alcoholic beverages, or take any drugs that were not prescribed by your health care provider for at least 24 hours after your discharge time. Follow any additional instructions given to you from your surgeon. Telephone instructions given to __Debra__and asked if any additional questions and then verbalized understanding. Patient advised to call surgeon office or pre surgery nurse liaison [phone] if any additional questions.
[2024-01-30] VITALS (8 sets, daily range): BP systolic 111–156; BP diastolic 59–82; PULSE 57–78; RESP 10–18; TEMP 36.3–36.4; O2SAT 94–99
--- NOTE | ~2024-01-30 | XR_ITS ---
EXAMINATION: XR surgery orthopedic DATE: 01/30/2024 16:21 INDICATION: Right ankle fracture. TECHNIQUE: 6 intraoperative fluoroscopic views of right ankle were obtained. I was not present. Fluor oscopy exposure time was 66 seconds. COMPARISON: Right ankle radiographs 01/24/2024 FINDINGS: There is an oblique fracture of distal fibula status post reduction internal fixation in ne ar-anatomic alignment with lateral plate and screws. IMPRESSION: 1. Oblique fracture of distal fibula status post reduction internal fixation. Reviewed, dictated and finalized at location A.
[2024-01-30 13:50] LABS: Hematocrit 41.8 % (37.0-47.0); Hemoglobin 14.4 g/dL (12.0-15.0)
--- NOTE | 2024-01-30 14:12 | WPDANESEPPF ---
Anes - Initial Pre Proc Eval Procedure: Operation Date: 01/30/24 15:00 Proposed Procedures p Open Reduction Internal Fixation Lateral Malleolus Fracture Right Ankle - Daniel Magana MD Date/Time: 01/30/24 14:12 Surgeon: Daniel Magana MD Pre Op Diagnosis: right ankle fracture Patient Data Age: 68 Gender: F Height: 1.83 m Weight: 71.8 kg Allergies Allergy/AdvReac Type Severity Reaction Status Date / Time No Known Allergies Allergy Verified 01/26/24 11:06 Home Medications Medication Instructions Recorded Confirmed Type mecobalamin (vitamin B12) 1,000 1,000 mcg PO DAILY 03/16/23 01/26/24 History mcg lozenges naproxen sodium 220 mg capsule 220 mg PO Q12H PRN Pain 03/16/23 01/26/24 History omega 0-cir-tid-fish oil 1,200 mg 1 cap PO DAILY 03/16/23 01/26/24 History (144 mg-216 mg) capsule (Fish Oil) ferrous sulfate 325 mg (65 mg 325 mg PO DAILY #30 tabs 03/17/23 01/26/24 Rx iron) tablet (Feosol) levothyroxine 88 mcg tablet See Rx Instructions .Route 07/05/23 01/26/24 Rx .COMPLEX #100 tabs ascorbate calcium (vitamin C) 500 500 mg PO DAILY 09/30/23 01/26/24 History mg tablet hydrocodone 5 mg-acetaminophen 325 1 tablet PO Q8H PRN pain #14 tabs 01/24/24 01/26/24 Rx mg tablet calcium carbonate 500 mg-vitamin 1 tablet PO DAILY 01/26/24 01/26/24 History D3 3.125 mcg (125 unit) tablet magnesium 500 mg tablet 500 mg PO DAILY 01/26/24 01/26/24 History ifqrqwwd-hvot-zjfa 8 mg-folic 400 1 tablet PO DAILY 01/26/24 01/26/24 History mcg-K 50 mcg-lutein 300 mcg tablet (Multivitamin Women 50 Plus) Laboratory Tests 01/30/24 13:45 Hgb 14.4 g/dL (12.0-15.0) Hct 41.8 % (37.0-47.0) Patient hx anesthesia problems: none Family hx anesthesia problems: none Results Review: All pre-operative results and documents have been reviewed as part of the pre-operative evaluation. [facility] Past Medical History Medical History Anemia Hypothyroidism Surgical History Surgical History H/O colonoscopy History of D&C 1985 History of surgical removal of skin lesion basal cell cancer left back 04/09/2011 Family History Family History Father Hypertension Atrial fibrillation Mother Hypertension Congestive heart failure COPD (chronic obstructive pulmonary disease) Crohn's disease Grandparent Acute myocardial infarction Social History Social History Smoking status: Never smoker Alcohol intake: current Drinks per week: 3 Substance use: never Substance use type: does not use Do You Feel Safe in your Home?: Yes Lack of Transportation: No Lack of Food: Never True Current Housing: I Have Housing Concerned About Future Housing: No Difficulty Paying Gas/Electric Bills: No Difficulty Paying for Meds: No Currently Unemployed: No Education: Bachelor's Degree Difficulty w/ Childcare or Family Care: No Living arrangements: with family Occupation/Education: retired Gender identity (if verbalized by the patient): Female Sexual Orientation (if Verbalized by the Patient): Straight or Heterosexual Spiritual care concerns: No Anes - Eval Final PreProcedure Day of Procedure 01/30/24 14:12 Patient weight: normal Heart: regular rate and rhythm Lungs: clear to auscultation Airway: Mallampati scale class II Neurological: alert and oriented Last oral intake: >/= 8 hours ASA classification: II Emergent: no Anesthetic plan: proceed Anesthesia type and monitoring: general LMA and standard monitoring Results Review: All pre-operative results and documents have been reviewed as part of the pre-operative evaluation. Informed Consent: The patient's anesthetic plan and its attendant risks and benefits we
--- NOTE | 2024-01-30 14:56 | WPDHPUPDATE1 ---
History and Physical Update Update Date/Time: 01/30/24 14:56 History and Physical has been reviewed, including an updated exam of the patient. There are NO changes in the patient's condition. Risks, benefits, and alternatives have been discussed and questions answered. Patient agrees to proceed with procedure.
[2024-01-30] MEDS: LACTATED RINGERS 1,000 ML 30 ML IV CONT ×2 (15:00→17:05)
[2024-01-30] MEDS: ACETAMINOPHEN 500 MG TABLET 1000 MG PO (15:00)
[2024-01-30] MEDS: KETOROLAC 15 MG/ML VIAL (*BKC) IV PUSH (15:00)
[2024-01-30] MEDS: ceFAZolin SODIUM 1 GM VIAL 2 GM IV PUSH (15:08)
[2024-01-30] MEDS: BUPIVACAINE/EPINEPHRINE 0.5% 50 ML VIAL 30 ML INFILTRATE (16:18)
--- NOTE | 2024-01-30 16:55 | W.PM.PROC2 ---
Procedure Note - Detailed Date of Procedure 01/30/24 Pre-op Diagnosis Displaced right ankle lateral malleolus fracture. Post-op Diagnosis Other (Displaced right ankle lateral malleolus and posterior malleolus fractures) Procedure Performed ORIF right ankle fracture with internal fixation of the lateral malleolus Surgeon Daniel Magana MD Scientific Research Associate Naomie Villagran PA-C Anesthesia General Findings Significant osteopenia noted. Cancellous screws required in the fibula. Locking screws distally. Significant anterior comminution of the fracture and displacement noted of the 20 percent posterior malleolar fragment. This reduced nearly anatomically after fixation of the fibula. Description of Procedure A general anesthetic was administered. The limb was prepped and draped in the usual sterile fashion with a well-padded tourniquet high on the thigh. A bump was placed under the hip. The limb was exsanguinated and the tourniquet inflated to 300 millimeters of mercury during the procedure. A longitudinal incision was created at the distal fibula. Careful dissection was carried down to bone. There was a fibular nerve branch right across the fracture site. This was sacrificed sharply to avoid neuroma. The fracture was carefully exposed. Callus and debris was irrigated from the wound. The bone quality was quite poor. There was significant comminution of the anterior distal fibular fragment. The fracture was brought out to length. Reduction was accomplished with the reduction forceps. The fixation plate fit anatomically. Fixation was performed with a combination of cortical locking screws distally and cancellous screws proximally. Fluoroscopy was used throughout the procedure to confirm anatomic reduction and appropriate placement of the implants. The ankle mortise was tested with the Cotton test and found to be stable. A moderately sized posterior malleolar fragment reduced anatomically after reduction and fixation of the fibula. The tourniquet was released. Meticulous hemostasis was obtained. The wound was closed in layers with 2-0 Vicryl suture 3-0 Monocryl suture and 3-0 nylon. A sterile dressing with well padded posterior with stir-up splint was applied. The patient was extubated and brought to the recovery room in stable condition. There were no complications. Physician preschool assistant principal, Naomie Villagran PA-C, required for surgery; including patient positioning, draping, tissue retraction, maintaining instrument position, assisting with fracture reduction and internal fixation, wound closure, and splint fabrication. Implants Arthrex Lateral malleolus anatomic stainless steel plate and screws Estimated Blood Loss 20 Drains No Packing No Pathology None sent Complications No immediate complications Condition Stable Disposition PACU [facility] Billing Surgery - Charge Forward: Surgery Billing
[2024-01-30] MEDS: oxyCODONE HCL (*CRX) 5 MG TAB IR PO (17:35)
== END 2024-01-30 18:17 | disposition home or self-care (01) ==
PROVIDERS: Anesthesiology; PCP Physician Assistant; Visit Provider Orthopaedic Surgery
PROC: (CPT 27792; principal; 2024-01-30 15:00)
DX: S82.61XA Displaced fracture of lateral malleolus of right fibula, initial encounter for closed fracture (principal); M85.88 Other specified disorders of bone density and structure, other site; D64.9 Anemia, unspecified; E03.9 Hypothyroidism, unspecified; Z79.1 Long term (current) use of non-steroidal anti-inflammatories (NSAID); Z79.891 Long term (current) use of opiate analgesic; Z98.890 Other specified postprocedural states; Z85.828 Personal history of other malignant neoplasm of skin; Z82.49 Family history of ischemic heart disease and other diseases of the circulatory system; X58.XXXA Exposure to other specified factors, initial encounter
CPT/HCPCS: 27792; 36415; 85014; 85018; 99199; A9270; C1713; J0690; J1100; J1170; J1885; J2250; J2405; J2704; J3010; J7120

== ENCOUNTER 2024-02-13 08:06 | Outpatient (CLI) | payer MEDICARE, SELFPAY ==
--- NOTE | ~2024-02-13 | XR_ITS ---
XR ankle RT min 3V Ordering provider: Daniel Magana MD History: . S82.61XA - Displaced fracture of lateral malleolus of rig... . Comparison: None. FINDINGS: BONES: Postoperative changes in the distal fibula. Fracture line is seen at the same area. Cast is se en in the area of the foot and the leg. JOINT SPACES: Normal. SOFT TISSUES: Normal. IMPRESSION: Fracture in the distal fibula with postoperative changes. Status post placement in a cast. Reviewed, dictated and finalized at location A.
== END 2024-02-13 08:07 | disposition home or self-care (01) ==
PROVIDERS: PCP Physician Assistant; Visit Provider Orthopaedic Surgery
DX: S82.61XA Displaced fracture of lateral malleolus of right fibula, initial encounter for closed fracture (principal); Z98.890 Other specified postprocedural states
CPT/HCPCS: 73610

== ENCOUNTER 2024-03-12 09:35 | Outpatient (CLI) | payer MEDICARE, SELFPAY ==
--- NOTE | ~2024-03-12 | XR_ITS ---
Right ankle Technique: AP, oblique, and lateral views were obtained. Clinical History: Postoperative follow-up COMPARISON: 02/13/2024 Findings: Status post ORIF of the distal fibula. Osseous alignment is unchanged. Orthopedic hardware unchanged. Ankle mortise and other visualized joint spaces are preserved. Soft tissues are otherwise unremarkable. Impression: No acute abnormality. Status post ORIF of the distal fibula. Reviewed, dictated and finalized at location M. Impression: No acute abnormality. Status post ORIF of the distal fibula.
== END 2024-03-12 09:36 | disposition home or self-care (01) ==
PROVIDERS: PCP Physician Assistant; Visit Provider Orthopaedic Surgery
DX: Z47.89 Encounter for other orthopedic aftercare (principal); S82.61XA Displaced fracture of lateral malleolus of right fibula, initial encounter for closed fracture; X58.XXXA Exposure to other specified factors, initial encounter
CPT/HCPCS: 73610

== ENCOUNTER 2024-11-30 08:06 | Outpatient (CLI) | payer MEDICARE, SELFPAY ==
--- NOTE | ~2024-11-30 | MM_ITS ---
EXAMINATION: MM screening devi BI w jeancarlos HISTORY: Screening mammogram TECHNIQUE: Craniocaudal and mediolateral oblique 3-D tomosynthesis images were obtained and synthetic 2-D images were generated. CAD analysis was submitted and interpreted. COMPARISON: 11/09/2023, 08/13/2022, 07/29/2022, 06/30/2021 BREAST PARENCHYMAL COMPOSITION:Dense: The breasts are heterogeneously dense, which may obscure small masses. FINDINGS: No suspicious mass, calcification, or architectural distortion are identified in either juan ast to suggest malignancy. There has been no suspicious interval change. IMPRESSION: No mammographic evidence of malignancy. Recommend routine screening mammography in one year. BI-RADS Category 1: Negative Reviewed, dictated and finalized at location .
== END 2024-11-30 08:07 | disposition home or self-care (01) ==
LOC: ANHIMG 08:11
PROVIDERS: PCP Family Medicine; Visit Provider Family Medicine
DX: Z12.31 Encounter for screening mammogram for malignant neoplasm of breast (principal)
CPT/HCPCS: 77063; 77067

== ENCOUNTER 2025-03-07 12:56 | Outpatient (CLI) | payer MEDICARE, SELFPAY ==
--- NOTE | ~2025-03-07 | XR_ITS ---
EXAMINATION: XR ankle RT min 3V, 03/07/2025 13:00 CDT HISTORY: Z98.890 - Other specified postprocedural states COMPARISON: No comparisons available. Findings: Postsurgical changes with plate and screws fixating the distal fibula, no acute fracture identified. Moderate degenerative changes. Soft tissues unremarkable. Impression: No acute fracture or malalignment. Reviewed, dictated and finalized at location P. Impression: No acute fracture or malalignment.
== END 2025-03-07 12:57 | disposition home or self-care (01) ==
LOC: MICIMG 12:57
PROVIDERS: PCP Family Medicine; Visit Provider Orthopaedic Surgery
DX: M19.071 Primary osteoarthritis, right ankle and foot (principal); Z98.890 Other specified postprocedural states; Z96.698 Presence of other orthopedic joint implants; Z87.81 Personal history of (healed) traumatic fracture
CPT/HCPCS: 73610

== ENCOUNTER 2025-04-18 10:23 | Outpatient (CLI) | payer MEDICARE, SELFPAY ==
--- NOTE | 2025-04-18 10:42 | ECG_ITS ---
Test Date: 2025-04-18 10:49:41 Measurements Intervals [place] Rate: 57 P: 64 MN: 172 QRS: 62 QRSD: 85 T: 53 QT: 432 QTc: 423 Interpretive Statements SINUS BRADYCARDIA No previous ECG available for comparison Electronically Signed On 04-18-2025 12:33:05 ENTERPRISE APPLICATION ADMINISTRATOR by Bg Butler M.D.
[2025-04-18 11:02] LABS: Hematocrit 42.1 % (37.0-47.0); Hemoglobin 13.9 g/dL (12.0-15.0)
--- OUTSIDE RECORDS SUMMARY | 2025-04-18 11:23 | XMS_ITS | Data Portability ---
Author Organization [employer], [facility] Address [address] [address] Assessment No assessment recorded. Plan of Treatment Reminders Order Date Submit Date Provider Last Modified By Organization Details Last Modified Time Details Appointments None record ed. Lab None record ed. Referral None record ed. Procedures None record ed. Surgeries None record ed. Imaging XR, knee - rm 15 023 02/24/20 23 [email or web address] Not available 3 08:27:30 Medication Orders None record ed. Patient TargetsNo targets recorded. Patient InstructionsNo instructions recorded. Reason for Referral None Reported. Results Created Date Observation Date Name Description Value Unit Range Abnormal Flag Note LastModifiedBy Organization Detail LastModifiedTime 09/19/19 24 09/13/2023 XR, knee, 4 or more view No observ ation record ed. BARCODE Not Available 2023 09:48:58 09/19/19 24 09/01/2023 MRI, knee, w/o contr ast No observ ation record ed. BARCODE Not Available 2023 09:48:58 Result Notes None recorded. Problems No Known Problems Medical Equipment None Reported. Allergies No known drug allergies Medications Name Sig Start Date Stop Date Status Note LastModified by Organization Details LastModified Time levothyroxi ne 88 mcg tablet Take 1 tablet every day by oral route. active Not Available Not Available No t Available methylpredn isolone 4 mg tablets in a dose pack FOLLOW PACKAGE DIRECTION S active Not Available Not Available No t Available sodium,pota ssium,mag sulfates 17.5 gram-3.13 gram-1.6 gram oral soln MIX AND DRINK DIRECTED 02/23 completed Not Available Not Available Not Available Vitals Date Recorded Body height Body mass index (BMI) Body weight Heart rate Systolic And Diastolic Provider Name and Address Organization Details Last Updated DateTime 09/15/2023 182.88 cm 21 kg/m2 53067.82 g 66 /min 153/81 mm[Hg] Raúl Varghese [employer] [facility], [facility] 09/15/2023 14:50:02 Date Recorded Body height Body mass index (BMI) Body weight Heart rate Systolic And Diastolic Provider Name and Address Organization Details Last Updated DateTime 10/03/2023 182.88 cm 21 kg/m2 54391.82 g 66 /min 159/81 mm[Hg] Raúl Varghese [employer] [facility], [facility] 10/03/2023 12:09:32 Date Recorded Body height Body mass index (BMI) Body weight Heart rate Systolic And Diastolic Provider Name and Address Organization Details Last Updated DateTime 02/23/2023 182.88 cm 21 kg/m2 08904.82 g 67 /min 166/82 mm[Hg] Raúl Varghese [facility] [employer] [facility] 02/23/2023 14:46:07 Social History Question Answer Notes LastModified by [employer] Details LastModified Time Tobacco Smoking Status Never Smoker Raúl Varghese [facility] [employer] [facility] 02/23/2023 14:47:28 What Is Your Relationship Status? Information not available 02/23/2023 Sex: Unknown Functional Status Question Answer Note LastModified by [employer] Details LastModified Time What is your level of alcohol consumption? Occasional Information not available 02/23/2023 Are you currently employed? No Information not available 02/23/2023 Mental Status None recorded. Family History Relationship Description Onset Age of this Age Resolved Age Notes LastModified by Organization Details LastModified Time Mother Arthritis Not available 02/23/2023 14:46:57 Mother Heart disease Not available 2022 14:47:04 Mother Hypothyroidi sm Not available 2022 14:47:18 Medical History Condition Response Coronary Artery Disease N HIV or AIDS N Other Cancer N Gout N Kidney Stones N Hyperthyroidism N Breast Cancer N Hernia N Head Trauma/Injury N Lung Cancer N Blood Clots N COPD N Depression N Lung Disease N Hypothyroidism N Pacemaker N Parkinson's N Anxiety Disorder N Multiple Sprains N Arthritis Y Alcohol / Substance Abuse N Kidney Cancer N Cancer Y Stroke N Melanoma N Sina Danlos Syndrome (EDS) N Neck Injury N Leg or Foot Ulcers N High Cholesterol N Skin Cancer N Liver Disease N Rheumatoid Arthritis N Headaches N Fibromyalgia N Concussion N Kidney Disease N Heart Problems N Scoliosis N Chronic use of Pain Medication N Prostate Cancer N Migraines N Thyroid Problems Y Alzheimers N DVT N Autoimmune Disorder N Anemia N Multiple Sclerosis N Tendon Tear N Ulcers N Heart Attack ([place]) N Osteopenia N Diabetes N Bleeding Disorder N Seizures/Epilepsy N Cardiac Stent N Tuberculosis N A-FIB N Lymphoma N Urinary Tract Infection N Back Problems N Diverticulitis N Dementia N Asthma N Lupus N Peripheral Vascular Disease N Sleep Apnea N Sleep Disorder N GERD/Reflux N Hepatitis N Aneurysm N Thyroid Cancer N Heart Disease N Pulmonary Embolism N Hypertension N Osteoporosis N Gynecological HistoryNo gynecological history recorded. Obstetrics History GPAL:G 0 P 0 0 0 0 Past Encounters Encounter ID Performer Location Encounter Start Date Encounter Closed Date Diagnosis/Indication Diagnosis SNOMED-CT Code Diagnosis ICD10 Code Diagnosis IMO Codes Diagnosis Note [id number] CAYLA SCHMID PA-C [facility] [address] [place] [id number] 02/23/2023 14:15:05 02/24/2023 08:27:30 Pain of right knee joint [id number] 39648 M25.561 [id number] CAYLA SCHMID PA-C [facility] [address] [place] [address] 09/15/2023 14:18:34 09/16/2023 09:24:07 [id number] CAYLA SCHMID PA-C [facility] [address] [place] [id number] 10/03/2023 11:31:51 10/03/2023 15:49:49 Health Concerns Section Related Observation LastModified by Organization Detai ls LastModified Time None Recorded Concern Status LastModified by Organization Details LastModified Time None Recorded Advance Directives Directive None Recorded Payers Insurance Date Sequence Insurance Name Policy Number Policy Bocanegra Covered Member ID Bocanegra Member ID Guarantor Name 09/30/2023 2 [facility] (MEDICARE REPLACEMENT/A DVANTAGE - HMO) [id number] Emily Gar [id number] Emily Gar 02/16/2023 1 *SELF PAY* Mckay OBGyzulma Episode No OBEpisode recorded.
--- OUTSIDE RECORDS SUMMARY | 2025-04-18 11:23 | XMS_ITS | Clinical Summary ---
Author Organization [facility] Address [address] [place] [address] Care Team Providers Care Strap Stitcher Name Role Phone Bakari Monzon MD Primary Care Provider [phone] Allergies No known active allergies Medications hyaluronate sodium, cross-linked (GEL-ONE) 30 mg/3 mL syringeIndicatio ns:Osteoarthriti s of the Knee Inject right knee once 3 mL 11/15/2023 Active hyaluronate sodium, stabilized (DUROLANE) 60 mg/3 mL syringe Inject Right knee once 3 mL 11/17/2023 Active Active Problems Problem Noted Date Diagnosed Date Basal cell carcinoma 11/10/2023 Surgical History Surgery Date Site/Laterality Comments FRACTURE SURGERY Jan 30, 2024 Medical History Medical History Date Comments Arthritis 2021 Cancer (HCC) 2010 Hypertension Mar 2024 Thyroid disease Family History Medical History Relation Name Comments Arthritis Mother Florencia Caban COPD Mother Florencia Caban Relation Name Status Comments Mother Florencia Caban Social History Tobacco Use Types Packs/Day Years Used Date Smoking Tobacco: Never Cigarettes Smokeless Tobacco: Never Tobacco Cessation:Counseling Given: Not Answered Comments Unknown Sex and Gender Information Value Date Recorded Sex Assigned at Not on file 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 Gender Identity Female 09/13/2023 3:55 PM CDT Sexual Orientation Straight 09/13/2023 3: 55 PM CDT Last Filed Vital Signs Vital Sign Reading Time Taken Comments Blood Pressure - - Pulse - - Temperature - - Respiratory Rate - - Oxygen Saturation - - Inhaled Oxygen Concentration - - Weight 70.3 kg (155 lb) 01/09/2024 4:01 PM CDT Height 182.9 cm (6') 01/09/2024 4:01 PM CDT Body Mass Index 21.02 01/09/2024 4:01 PM CDT Plan of Treatment Health Maintenance Due Date Last Done Comments Breast Cancer Screening-Mammogram 1955 Colon Cancer Screening-Colonoscopy 1955 Depression Screening 1956 Fall Risk Assessment 1955 Hepatitis C Screening 1955 Osteoporosis Screening-Bone Density Scan 1956 DTaP/Tdap/Td Vaccine (1 - Tdap) 02/21/1967 Hepatitis B Screening 02/21/1974 Well Visit 65+ 02/21/2021 Covid-19 Vaccine (2024-2 6 season) 2025 08/15/2023, 2023, 04/23/2022, Additional history exists Influenza Vaccine (#1) 2025 , 03/15/2022, 02/28/2021, Additional history exists Zoster Vaccine Completed 04/06/2018, 01/22/2018 Pneumococcal vaccine 65+ Completed 023, 06/08/2022, 05/19/2021 Insurance [place] [address] [employer] MEDICARE ADVANTAGE Care Teams Strap Stitcher Relationship Specialty Start Date End Date Bakari Monzon MD [address] [place] [id number] PCP - General Family Medicine 11/10/23
--- OUTSIDE RECORDS SUMMARY | 2025-04-18 11:23 | XMS_ITS | Clinical Summary ---
Author Organization [facility] [employer] Address [address] [place] [address] Care Team Providers Care Highway Construction Inspector Name Role Phone Bakari Monzon MD Primary Care Provider [phone] Source Comments [facility] [employer]non-owned Affiliates and Associated Physician Practices is amultiple site organization consisting of ambulatory clinics and hospital sitesin [place], [place], [place] and [place]. This disclosure is being madepursuant to the Care Everywhere program and may not contain all information available regarding this patient. Last updated 18.[facility] [employer] Allergies No known active allergies Medications * Be aware that medications may not be up to date on this document. Alwaysverify current medications with the patient. LEVOTHYROXINE SODIUM PO Active fluticasone propionate (FLONASE) 50 MCG/ACT nasal spray [place] 2 sprays into each nostril once daily 1 bottles 05/18/2018 Active ASPIRIN 81 PO Active calcium 500 mg TABS tablet Take 500 mg by mouth 2 times daily with morning and evening meal Active Ascorbic Acid (VITAMIN C PO) Activ e MAGNESIUM CITRATE PO Active benzonatate (TESSALON) 200 MG capsule Take 1 capsule by mouth 3 times daily as needed for Cough 30 capsule 09/11/2018 Active Active Problems No known active problems Immunizations Immunization Administration Dates Next Due INFLUENZA VACCINE, QUADR. 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 Gender Identity Not on file Sexual Orientation Not on file Last Filed Vital Signs Vital Sign Reading Time Taken Comments Blood Pressure 112/70 09/11/2018 10:43 AM CDT Pulse 78 01/31/2021 2:09 PM CDT Temperature 36.7 C (98 F) 01/31/2021 2:09 PM CDT Respiratory Rate 20 01/31/2021 2:09 PM CDT Oxygen Saturation 97% 09/11/2018 10:43 AM CDT Inhaled Oxygen Concentration - - Weight 65.8 kg (145 lb) 09/11/2018 10:43 AM CDT Height 182.9 cm (6') 09/11/2018 10:43 AM CDT Body Mass Index 19.67 09/11/2018 10:43 AM CDT Plan of Treatment Health Maintenance Due Date Last Done Comments BONE DENSITY TESTING 1955 COLOGUARD (AGES 45-75) - COLON CA SCREENING 1956 COLON MONITORING 1956 COLONOSCOPY - COLON CA SCREENING 1956 CT COLONOGRAPHY - COLON CA SCREENING 1956 Colorectal Cancer Screening 1956 FIT - COLON CA SCREENING 1956 FLEX SIG - COLON CA SCREENING 1956 LIPID TESTING 1956 MAMMOGRAM 1956 HEPATITIS C SCREENING 02/17/1974 DTAP/TDAP/TD VACCINES (1 - Tdap) 02/21/1975 PNEUMOCOCCAL VACCINE 50+ (1 of 1 - PCV) 02/21/2006 ZOSTER VACCINE (1 of 2) 02/21/2006 DEPRESSION SCREENING 06/06/2024 MEDICARE AWV CALENDAR YEAR 2024 COVID-19 VACCINE (3 - season) 2025 09/30/2020, 09/05/2020 INFLUENZA VACCINE (#1) 2025 , 03/11/2018, 04/03/2017, Additional history exists Respiratory Syncytial Virus (RSV) Vaccine Pt: or over 60 yrs (1 - 1-dose 75+ series) 02/21/2031 HEPATITIS B VACCINE Aged Out No longe r eligible based on patient's age to complete this topic HIB VACCINE Aged Out No longer eligi ble based on patient's age to complete this topic HPV VACCINE Aged Out No longer eligi ble based on patient's age to complete this topic MENINGOCOCCAL (Group B) VACCINE SHARED DECISION-MAKING Aged Out No longer eligible based on patient's age to complete this topic MENINGOCOCCAL GROUPS A/C/Y/W VACCINE Aged Out No longer eligible based on patient's age to complete this topic Insurance [address] MANAGED MEDICARE ADV [address] Care Teams Highway Construction Inspector Relationship Specialty Start Date End Date Bakari Monzon MD PCP - General Family Medicine 05/18/18
--- OUTSIDE RECORDS SUMMARY | 2025-04-18 11:23 | XMS_ITS | Encounter Summary ---
Author Organization [facility] Address [address] [facility] [place] [address] Care Team Providers Care Tuck Pointer Helper Name Role Phone Bakari Monzon MD Primary Care Provider [phone] Encounter Details Date Type Department Care Team (Late st Contact Info) Description 07/03/2020 Lab Requisition [facility] [address] [facility], [facility] [place] [address] Ela Covington DO [address] [place] [address] Social History Tobacco Use Types Packs/Day Years Used Date Smoking Tobacco: Never Smokeless Tobacco: Never Comments No Sex and Gender Information Value Date Recorded Sex Assigned at Not on file Legal Sex Female 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 Gender Identity Not on file Sexual Orientation Not on file documented as of this encounter Plan of Treatment Not on file documented as of this encounter Procedures Procedure Name Priority Date/Time Associated Diagnosis Comments DERMATOPATHOLOGY Routine 07/02/2020 12:0 0 AM INTERNATIONAL FLIGHT ATTENDANT documented in this encounter Results * DERMATOPATHOLOGY (07/02/2020 12:00 AM INTERNATIONAL FLIGHT ATTENDANT) Case Report Dermatopathology Report Case: [id number] Authorizing Provider: Ela Covington DO Collected: 07/02/2020 12:00 AM Ordering Location: [facility] Lab Received: 07/03/2020 09:31 AM Pathologist: Gia Velazquez MD Specimens: A) - Skin, right lateral thigh B) - Skin, chest 4:43 PM [facility] DERMAT[facility]OR[facility] Final Diagnosis Specimen A. SKIN, right lateral thigh: HYPERPLASTIC (HYPERTROPHIC) ACTINIC KERATOSIS, INFLAMED (L57.0) (see microscopic description) Specimen B. SKIN, chest: LICHEN PLANUS-LIKE KERATOSIS (BENIGN LICHENOID KERATOSIS) (L82.1) 4:43 PM [facility] DERMATOPATHOLOGY [facility]ORATORY at [address] INTERNATIONAL FLIGHT ATTENDANT Clinical History A-B: R/O NMSC, non-healing. 4:43 PM [facility] Gross Description Specimen A: Received is one formalin filled container labeled with the patient's name and designated right lateral thigh. The specimen consists of a shave measuring [id number]. Jar 0. Specimen B: Received is one formalin filled container labeled with the patient's name and designated chest. The specimen consists of a shave measuring [id number]. Jar 0. 4:43 PM [facility]ERMAT[facility]ATH[facility] Microscopic Description Specimen A. SKIN, right lateral thigh: There is hyperkeratosiss. There is epidermal hyperplasia with disorderly maturation of keratinocytes with nuclear pleomorphism confined to the lower half of the epidermis. The lesion is inflamed. Additional deeper sections were obtained and reviewed. Specimen B. SKIN, chest: The epidermis is mildly acanthotic. There is a lichenoid infiltrate with vacuolar changes of basilar keratinocytes and scattered necrotic keratinocytes. 4:43 PM [facility] DERMATOPATHOLOGY [facility]ORAT[facility] Disclaimer An external and internal positive and negative controls are appropriate for the histochemical, immunohistochemical and immunofluorescence stain(s) in this case (if any), except where stated explicitly. The performance characteristics of the stain(s) cited in this report were developed and its performance characteristic determined by the Dermatopathology Laboratory at [facility], directed by Dr. Beckie Dumont. These tests need not be, and therefore are not, approved by the [place] Food and Drug Administration. The tests are used for clinical purposes. Billing Codes Specimen Charges Stain Charges 31869 44030 1 1 1 4:43 PM INTERNATIONAL FLIGHT ATTENDANT DERMATOPATHOLOGY LABORATORY Embedded Images 1 4:43 PM INTERNATIONAL FLIGHT ATTENDANT DERMATOPATHOLOGY LABORATORY Pathology/Cytology TISSUE SPECIMEN FROM SKIN / Unknown 07/02/2020 07/03/2020 9:31 AM INTERNATIONAL FLIGHT ATTENDANT Miscellaneous samples (specimen) TISSUE SPECIMEN FROM SKIN / Unknown 07/02/2020 07/03/2020 9:31 AM INTERNATIONAL FLIGHT ATTENDANT us Ela Covington DO LAB - PATHOLOGY/CYTOLOGY ORDERABLES Final Result DERMATOPATHOLOGY LABORATORY [facility] - Department of Dermatology [facility] Medicine [address] [place] [address], [address] [phone] documented in this encounter Visit Diagnoses Not on filedocumented in this encounter Care Teams Tuck Pointer Helper Relationship Specialty Start Date End Date Bakari Monzon MD PCP - General Family Medicine 05/18/18 documented as of this encounter
--- OUTSIDE RECORDS SUMMARY | 2025-04-18 11:23 | XMS_ITS | Encounter Summary ---
Author Organization [facility] Address [address] [place] [address] Care Team Providers Care Macadam Raker Name Role Phone Unavailable Primary Care Provider Unavailabl e Encounter Details Date Type Department Care Team (Latest Contact Info) Description 10/21/[address] 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
--- OUTSIDE RECORDS SUMMARY | 2025-04-18 11:23 | XMS_ITS | Encounter Summary ---
Author Organization [facility] Address [address] [facility] [place] [address] Care Team Providers Care Field Service Analyst Name Role Phone Bakari Monzon MD Primary Care Provider [phone] Encounter Details Date Type Department Care Team (Late st Contact Info) Description 01/02/2020 Telephone 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
--- OUTSIDE RECORDS SUMMARY | 2025-04-18 11:23 | XMS_ITS | Clinical Summary ---
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
--- OUTSIDE RECORDS SUMMARY | 2025-04-18 11:23 | XMS_ITS | Encounter Summary ---
Author Organization [facility] Address [address] [facility] [place] [address] Care Team Providers Care Spinning Lathe Operator Name Role Phone Bakari Monzon MD Primary Care Provider [phone] Encounter Details Date Type Department Care Team (Late st Contact Info) Description 05/08/2019 Lab Requisition [facility] [address] [facility] [place] [address] Ela Covington DO [address] [place] [address] Social History Tobacco Use Types Packs/Day Years Used Date Smoking Tobacco: Never Smokeless Tobacco: Never Comments No Sex and Gender Information Value Date Recorded Sex Assigned at Not on file Legal Sex Female 8:56 AM CLEANER INDUSTRIAL Gender Identity Not on file Sexual Orientation Not on file documented as of this encounter Plan of Treatment Not on file documented as of this encounter Procedures Procedure Name Priority Date/Time Associated Diagnosis Comments DERMATOPATHOLOGY Routine 05/08/2019 12:0 0 AM CLEANER INDUSTRIAL documented in this encounter Results * DERMATOPATHOLOGY (05/08/2019 12:00 AM CLEANER INDUSTRIAL) Case Report Dermatopathology Report Case: [id number] Authorizing Provider: Ela Covington DO Collected: 05/08/2019 12:00 AM Ordering Location: [facility] DermPath Lab Received: 05/08/2019 12:27 PM Pathologist: Doris Dumont MD Specimens: A) - Skin, left chest B) - Skin, right ant LE C) - Skin, right med LE 1:03 PM [facility] DERMATOPATHOLOGY LABORATORY Final Diagnosis Specimen A. SKIN, left chest: BENIGN VERRUCOUS KERATOSIS, INFLAMED (L82.1) Specimen B. SKIN, right ant LE: BENIGN VERRUCOUS KERATOSIS (L82.1) Specimen C. SKIN, right med LE: LICHEN PLANUS-LIKE KERATOSIS (BENIGN LICHENOID KERATOSIS) (L82.1) 1:03 PM [facility] DERMATOPATHOLOGY LABORATORY at 130[address] CLEANER INDUSTRIAL Clinical History A-C: LPLK vs ISK R/O NMSC. 1:03 PM [facility] DERMATOPATHOLOGY LABORATORY Gross Description Specimen A: Received is one formalin filled container labeled with the patient's name and designated left chest. The specimen consists of a shave measuring [id number]. Jar 0. Specimen B: Received is one formalin filled container labeled with the patient's name and designated right ant LE. The specimen consists of a shave measuring [id number]. Jar 0. Specimen C: Received is one formalin filled container labeled with the patient's name and designated right med LE. The specimen consists of a shave measuring [id number]. Jar 0. 1:03 PM [facility] DERMATOPATHOLOGY LABORATORY Microscopic Description Specimen A. SKIN, left chest: Sections show hyperkeratosis, papillomatosis, hypergranulosis, and acanthosis. Inflammatory cells are present within the dermis. These histological findings can be seen in a verruca vulgaris or a seborrheic keratosis. Specimen B. SKIN, right ant LE: Sections show hyperkeratosis, papillomatosis, hypergranulosis, and acanthosis. These histological findings can be seen in a verruca vulgaris or a seborrheic keratosis. Specimen C. SKIN, right med LE: The epidermis is mildly acanthotic. There is a lichenoid infiltrate with vacuolar changes of basilar keratinocytes and scattered necrotic keratinocytes. 1:03 PM [facility] DERMATOPATHOLOGY LABORATORY Disclaimer An external and internal positive and negative controls are appropriate for the histochemical, immunohistochemical and immunofluorescence stain(s) in this case (if any), except where stated explicitly. The performance characteristics of the stain(s) cited in this report were developed and its performance characteristic determined by the Dermatopathology Laboratory at [facility], directed by Dr. Beckie Dumont. These tests need not be, and therefore are not, approved by the [place] Food and Drug Administration. The tests are used for clinical purposes. Billing Codes Specimen Charges Stain Charges 86620 86581 09677 1 1 1 9 1:03 PM CLEANER INDUSTRIAL DERMATOPATHOLOGY LABORATORY Embedded Images 9 1:03 PM [employer]AN[employer] INDUSTRIAL DERMATOPATHOLOGY LABORATORY Pathology/Cytology TISSUE SPECIMEN FROM SKIN / Unknown 05/08/2019 05/08/2019 12:27 PM CLEANER INDUSTRIAL Miscellaneous samples (specimen) TISSUE SPECIMEN FROM SKIN / Unknown 05/08/2019 05/08/2019 12:27 PM CLEANER INDUSTRIAL Miscellaneous samples (specimen) TISSUE SPECIMEN FROM SKIN / Unknown 05/08/2019 05/08/2019 12:27 PM CLEANER INDUSTRIAL us Ela Covington DO LAB - PATHOLOGY/CYTOLOGY ORDERABLES Final Result DERMATOPATHOLOGY LABORATORY [facility] - Department of Dermatology [facility] [facility] 5th Floor [address] [phone] documented in this encounter Visit Diagnoses Not on filedocumented in this encounter Care Teams Spinning Lathe Operator Relationship Specialty Start Date End Date Bakari Monzon MD PCP - General Family Medicine 05/18/18 documented as of this encounter
== END 2025-04-18 10:24 | disposition home or self-care (01) ==
LOC: ANHSURGERY 10:27
PROVIDERS: Anesthesiology; PCP Family Medicine; Visit Provider Orthopaedic Surgery
DX: Z01.818 Encounter for other preprocedural examination (principal); D64.9 Anemia, unspecified; I10 Essential (primary) hypertension
CPT/HCPCS: 36415; 85014; 85018; 93005

== ENCOUNTER 2025-04-25 00:38 | Day surgery (SDC) | payer MEDICARE, SELFPAY ==
[2025-04-12 12:38] VITALS: BMI 22.4
--- NOTE | 2025-04-12 12:48 | PC.NURSE ---
[facility] has started construction of its new state of the art ER which will open Spring 2026. With this, we anticipate parking may be a challenge for some our surgical patients and families. Parking spaces are limited but are available for all Surgical, obstetrics, and ER patients sharing this lot. If you arrive and find you are having a hard time finding a parking space, please note that we understand the challenges, please drive around the hospital and park near Hospital Entrance 1. When you enter this entrance, you can ask a volunteer to direct or take you back to the surgical waiting area to check in. We appreciate everyone?s understanding of these expected challenges while we build for your future. Report to the Outpatient Waiting Room, entrance under the green pavilion located off [address], at time _1100_ on date _[phone]_. Planned Procedure Time: _1pm_.? Time changes happen often and if your time is changed the preop area will call you the afternoon before. - You and your visitor will be asked to self-screen and do not enter if you have any COVID symptoms. Please call surgeon if you need to reschedule. - A mask is optional within the hospital at this time. Patients may have clear liquids (water, carbonated beverages, clear teas, apple juice) until 3 hours prior to surgery with a maximum of 20 ounces. - No food from midnight until time of surgery and no smoking, or chewing tobacco (or any form of nicotine). No chewing gum, candy or mints. Take only the following medications with a SIP of water on the morning of surgery: __Levothyroxine____ DO NOT STOP ANY OF YOUR OTHER PRESCRIPTION MEDICATIONS PRIOR TO SURGERY EXCEPT THE FOLLOWING Hold all vitamins and supplements for 3 days per anesthesiologist. Medications to discontinue per physician Date to take last sasj___[phone]___ Please no make-up, nail german, hairspray, perfume, deodorant, or body powder the day of surgery.? No jewelry (including any body piercings) or valuables the day of surgery, leave them at home.? Please take a shower or bath the night before, or the morning of, surgery with an antibacterial soap.? Wear comfortable, loose fitting clothing.? - Jewelry must be removed prior to entering the operating room.? Rings and piercings that are not removed may be cut off. - The hospital will not accept responsibility for valuables.? - Please leave all valuables, including medications, at home the day of surgery. If you are going home after surgery, a licensed form setter/driver must drive you home.? - NO public transportation without another adult if you receive anesthesia. - We recommend that an adult stay with you for 24 hours following discharge. - We also recommend that you do not drive, make important decision, drink alcoholic beverages, or take any drugs that were not prescribed by your health care provider for at least 24 hours after your discharge time. Follow any additional instructions given to you from your surgeon. Telephone instructions given to __Debbie___and asked if any additional questions and then verbalized understanding. Patient advised to call surgeon office or pre surgery nurse liaison [phone] if any additional questions.
[2025-04-25] VITALS (8 sets, daily range): BP systolic 116–154; BP diastolic 55–74; PULSE 63–75; RESP 8–18; TEMP 36.2–36.4; O2SAT 96–100; BMI 22.6
--- NOTE | ~2025-04-25 | XR_ITS ---
EXAM/PROCEDURE: XR surgery orthopedic HISTORY: REMOVAL HARDWARE RIGHT ANKLE COMPARISON: None available. Fluoroscopy time: 1.4 seconds Dose: 0.112 Valera per square centimeter IMPRESSION: Directed fluoroscopic imaging performed by provider. No radiologist present for procedure. See operative/procedure notes for complete report. Reviewed, dictated and finalized at location A. [employer]
--- OUTSIDE RECORDS SUMMARY | 2025-04-25 02:04 | XMS_ITS | Encounter Summary ---
Author Organization [facility] Address [address] [place] [address] Care Team Providers Care Security Sme Name Role Phone Bakari Monzon MD Primary Care Provider [phone] Encounter Details Date Type Department Care Team (Late st Contact Info) Description 01/02/2020 Telephone [facility] [address] [place] [address] Zana Villa MD [address] [place], [place] [id number] Social History Tobacco Use Types Packs/Day Years Used Date Smoking Tobacco: Never Smokeless Tobacco: Never Comments No Sex and Gender Information Value Date Recorded Sex Assigned at Not on file Legal Sex Female 8:56 AM MASTER AUTOMOTIVE TECHNICIAN Gender Identity Not on file Sexual Orientation Not on file documented as of this encounter Miscellaneous Notes * Telephone Encounter - Zenobia Medina - 01/02/2020 1:57 PM CDT Wrong pt when looked up, no message needed documented in this encounter Plan of Treatment Not on file documented as of this encounter Visit Diagnoses Not on filedocumented in this encounter Care Teams Security Sme Relationship Specialty Start Date End Date Bakari Monzon MD PCP - General Family Medicine 05/18/18 documented as of this encounter
--- OUTSIDE RECORDS SUMMARY | 2025-04-25 02:04 | XMS_ITS | Encounter Summary ---
Author Organization [facility] Address [address] [facility] [place] [address] Care Team Providers Care Party Plan Sales Agent Name Role Phone Bakari Monzon MD Primary Care Provider [phone] Encounter Details Date Type Department Care Team (Late st Contact Info) Description 07/03/2020 Lab Requisition [facility] [address] [facility] [place] [address] Ela Covington DO [address] [place] [address] Social History Tobacco Use Types Packs/Day Years Used Date Smoking Tobacco: Never Smokeless Tobacco: Never Comments No Sex and Gender Information Value Date Recorded Sex Assigned at Not on file Legal Sex Female 8:56 AM CUSTODIAL SUPERVISOR Gender Identity Not on file Sexual Orientation Not on file documented as of this encounter Plan of Treatment Not on file documented as of this encounter Procedures Procedure Name Priority Date/Time Associated Diagnosis Comments DERMATOPATHOLOGY Routine 07/02/2020 12:0 0 AM CUSTODIAL SUPERVISOR documented in this encounter Results * DERMATOPATHOLOGY (07/02/2020 12:00 AM CUSTODIAL SUPERVISOR) Case Report Dermatopathology Report Case: [id number] Authorizing Provider: Ela Covington DO Collected: 07/02/2020 12:00 AM Ordering Location: [facility] DermPath Lab Received: 07/03/2020 09:31 AM Pathologist: Gia Velazquez MD Specimens: A) - Skin, right lateral thigh B) - Skin, chest 4:43 PM [facility] DERMATOPATHOLOGY LABORATORY Final Diagnosis Specimen A. SKIN, right lateral thigh: HYPERPLASTIC (HYPERTROPHIC) ACTINIC KERATOSIS, INFLAMED (L57.0) (see microscopic description) Specimen B. SKIN, chest: LICHEN PLANUS-LIKE KERATOSIS (BENIGN LICHENOID KERATOSIS) (L82.1) 4:43 PM [facility] DERMATOPATHOLOGY LABORATORY at 1643 CUSTODIAL SUPERVISOR Clinical History A-B: R/O NMSC, non-healing. 4:43 PM [facility] DERMATOPATHOLOGY LABORATORY Gross Description Specimen A: Received is one formalin filled container labeled with the patient's name and designated right lateral thigh. The specimen consists of a shave measuring [id number]. Jar 0. Specimen B: Received is one formalin filled container labeled with the patient's name and designated chest. The specimen consists of a shave measuring [id number]. Jar 0. 4:43 PM [facility] DERMATOPATHOLOGY LABORATORY Microscopic Description Specimen A. [...] keratinocytes and scattered necrotic keratinocytes. 4:43 PM [facility] DERMATOPATHOLOGY LABORATORY Disclaimer An external and internal positive and negative controls are appropriate for the histochemical, immunohistochemical and immunofluorescence stain(s) in this case (if any), except where stated explicitly. The performance characteristics of the stain(s) cited in this report were developed and its performance characteristic determined by the Dermatopathology Laboratory at [facility], directed by Dr. Beckie Dumont. These tests need not be, and therefore are not, approved by the [place] Food and Drug Administration. The tests are used for clinical purposes. Billing Codes Specimen Charges Stain Charges 57949 65596 1 1 1 4:43 PM CUSTODIAL SUPERVISOR DERMATOPATHOLOGY LABORATORY Embedded Images 1 4:43 PM CUSTODIAL SUPERVISOR DERMATOPATHOLOGY LABORATORY Pathology/Cytology TISSUE SPECIMEN FROM SKIN / Unknown 07/02/2020 07/03/2020 9:31 AM CUSTODIAL SUPERVISOR Miscellaneous samples (specimen) TISSUE SPECIMEN FROM SKIN / Unknown 07/02/2020 07/03/2020 9:31 AM CUSTODIAL SUPERVISOR us Ela Covington DO LAB - PATHOLOGY/CYTOLOGY ORDERABLES Final Result DERMATOPATHOLOGY LABORATORY [facility] - Department of Dermatology [facility] Medicine [address] [place] [address], [address] [phone] documented in this encounter Visit Diagnoses Not on filedocumented in this encounter Care Teams Party Plan Sales Agent Relationship Specialty Start Date End Date Bakari Monzon MD PCP - General Family Medicine 05/18/18 documented as of this encounter
--- OUTSIDE RECORDS SUMMARY | 2025-04-25 02:04 | XMS_ITS | Clinical Summary ---
Author Organization [facility] Address [address] [facility] Attn: Epic Prelude ADT LUIS ANGEL NOLASCO [address] Care Team Providers Care Neurobiologist Name Role Phone Unavailable Primary Care Provider Unavailabl e Social History Tobacco Use Types Packs/Day Years Used Date Smoking Tobacco: Never Assessed Comments Unknown Sex and Gender Information Value Date Recorded Sex Assigned at Not on file Legal Sex Female 4:41 AM RESIDENTIAL SOLAR SALES CONSULTANT Gender Identity Not on file Sexual Orientation [...]
--- OUTSIDE RECORDS SUMMARY | 2025-04-25 02:04 | XMS_ITS | Clinical Summary ---
Author Organization [facility] [employer] Address [address] [facility] [place] [address] Care Team Providers Care Supervisor Grove Name Role Phone Bakari Monzon MD Primary Care Provider Source Comments [facility] [employer],non-owned Affiliates and Associated Physician Practices is amultiple site organization consisting of ambulatory clinics and hospital sitesin [place], [place], [place] and [place]. This disclosure is being madepursuant to the Care Everywhere program and may not contain all information available regarding this patient. Last updated 18.[facility] [employer] Allergies No known active allergies Medications * Be aware that medications may not be up to date on this document. Alwaysverify current medications with the patient. LEVOTHYROXINE SODIUM PO Active fluticasone propionate (FLONASE) 50 MCG/ACT nasal spray [place] 2 sprays into each nostril once daily [...] on file Legal Sex Female 8:56 AM CARROT TIER Gender Identity Not on file Sexual Orientation [...] age to complete this topic Insurance [address] MANAGED MEDICARE ADV [address] Care Teams Supervisor Grove Relationship Specialty Start Date End Date Bakari Monzon MD PCP - General Family Medicine 05/18/18
--- OUTSIDE RECORDS SUMMARY | 2025-04-25 02:04 | XMS_ITS | Data Portability ---
Author Organization [employer], [facility] Address [address] [address] Assessment No assessment recorded. Plan of Treatment [...] Updated DateTime 09/15/2023 182.88 cm 21 kg/m2 60681.82 g 66 /min 153/81 mm[Hg] Raúl Varghese [employer] [facility] 09/15/2023 14:50:02 Date Recorded Body height Body mass index (BMI) Body weight Heart rate Systolic And Diastolic Provider Name and Address Organization Details Last Updated DateTime 10/03/2023 182.88 cm 21 kg/m2 59131.82 g 66 /min 159/81 mm[Hg] Raúl Varghese [employer] [facility] 10/03/2023 12:09:32 Date Recorded Body height Body mass index (BMI) Body weight Heart rate Systolic And Diastolic Provider Name and Address Organization Details Last Updated DateTime 02/23/2023 182.88 cm 21 kg/m2 10440.82 g 67 /min 166/82 mm[Hg] Raúl [facility]arghese [facility] 02/23/2023 14:46:07 Social History Question Answer Notes LastModified by [employer] Details LastModified Time Tobacco Smoking Status Never Smoker Raúl Varghese [facility] [employer] [facility] 02/23/2023 14:47:28 What Is Your Relationship Status? Information not available 02/23/2023 Sex: Unknown Functional Status Question Answer Note LastModified by [employer] Details LastModified Time What is your level [...] available 2022 14:47:18 Medical History Condition Response Other Cancer N Coronary Artery Disease N HIV or AIDS N Gout N Kidney Stones N Hyperthyroidism N Breast Cancer N Head Trauma/Injury N Hernia N Lung Cancer N Depression N Lung Disease N COPD N Hypothyroidism N Blood Clots N Pacemaker N Parkinson's N Anxiety Disorder N Multiple Sprains N Arthritis Y Alcohol / Substance Abuse N Kidney Cancer N Cancer Y Stroke N Melanoma N Sina Danlos Syndrome (EDS) N Neck Injury N Leg or Foot Ulcers N High Cholesterol N Skin Cancer N Liver Disease N Rheumatoid Arthritis N Fibromyalgia N Headaches N Concussion N Kidney Disease N Heart Problems N Scoliosis N Chronic use of Pain Medication N Prostate Cancer N Migraines N Thyroid Problems Y Alzheimers N DVT N Autoimmune Disorder N Anemia N Multiple Sclerosis N Tendon Tear N Ulcers N Heart Attack (AK) N Osteopenia N Diabetes N Bleeding Disorder [...] ICD10 Code Diagnosis IMO Codes Diagnosis Note [id number] CAYLA SCHMID PA-C [facility] [address] [place] [address] 02/23/2023 14:15:05 02/24/2023 08:27:30 Pain of right knee joint [id number] 33767 M25.561 [id number] CAYLA SCHMID PA-C [facility] [address] [place] [address] 09/15/2023 14:18:34 09/16/2023 09:24:07 [id number] CAYLA SCHMID PA-C [facility] [address] [place] [address] 10/03/2023 11:31:51 10/03/2023 15:49:49 Health Concerns Section Related Observation LastModified by Organization Detai ls LastModified Time None Recorded Concern Status LastModified by Organization Details LastModified Time None Recorded Advance Directives Directive None Recorded Payers Insurance Date Sequence Insurance Name Policy Number Policy Bocanegra Covered Member ID Bocanegra Member ID Guarantor Name 09/30/2023 2 [facility] (MEDICARE REPLACEMENT/A DVANTAGE - HMO) [id number] Emily Gar [id number] Emily Gar 02/16/2023 1 *SELF PAY* De khushbu Gar OBGyn Episode No OBEpisode recorded.
--- OUTSIDE RECORDS SUMMARY | 2025-04-25 02:04 | XMS_ITS | Clinical Summary ---
Author Organization [facility] Address [address] [place] [address] Care Team Providers Care Electrician Maintenance Name Role Phone Bakari Monzon MD Primary Care Provider [phone] Allergies No known active allergies Medications hyaluronate [...] on file Legal Sex Female 11:55 PM SALES ESTIMATOR Gender Identity Female 09/13/2023 3:55 PM CDT [...] 023, 06/08/2022, 05/19/2021 Insurance UHC MEDICARE ADVANTAGE [facility] MEDICARE Address: [facility] [address] [place] [address] UHC MEDICARE ADVANTAGE [facility] MEDICARE Address: [address] [address] Care Teams Electrician Maintenance Relationship Specialty Start Date End Date Bakari Monzon MD [address] [place] [address] PCP - General Family Medicine 11/10/23
--- OUTSIDE RECORDS SUMMARY | 2025-04-25 02:04 | XMS_ITS | Encounter Summary ---
Author Organization [facility] Address [address] [facility] [place] [address] Care Team Providers Care Furniture And Bedding Inspector Name Role Phone Bakari Monzon MD Primary Care Provider [phone] Encounter Details Date Type Department Care Team (Late st Contact Info) Description 05/08/2019 Lab Requisition [facility] [address] [facility] [place] [address] Ela Covington DO [address] [place] [address] Social History Tobacco Use Types Packs/Day Years Used Date Smoking Tobacco: Never Smokeless Tobacco: Never Comments No Sex and Gender Information Value Date Recorded Sex Assigned at Not on file Legal Sex Female 8:56 AM JEWEL WAXER Gender Identity Not on file Sexual Orientation Not on file documented as of this encounter Plan of Treatment Not on file documented as of this encounter Procedures Procedure Name Priority Date/Time Associated Diagnosis Comments DERMATOPATHOLOGY Routine 05/08/2019 12:0 0 AM JEWEL WAXER documented in this encounter Results * DERMATOPATHOLOGY (05/08/2019 12:00 AM JEWEL WAXER) Case Report Dermatopathology Report Case: [id number] Authorizing Provider: Ela Covington DO Collected: 05/08/2019 12:00 AM Ordering Location: [facility] DermPath Lab Received: 05/08/2019 12:27 PM Pathologist: Doris Dumont MD Specimens: A) - Skin, left chest B) - Skin, right ant LE C) - Skin, right med LE 1:03 PM [facility] DERMATOPATHOLOGY LABORATORY Final Diagnosis Specimen A. SKIN, left chest: BENIGN VERRUCOUS KERATOSIS, INFLAMED (L82.1) Specimen B. SKIN, right ant LE: BENIGN VERRUCOUS KERATOSIS (L82.1) Specimen C. SKIN, right med LE: LICHEN PLANUS-LIKE KERATOSIS (BENIGN LICHENOID KERATOSIS) (L82.1) 1:03 PM [facility] DERMATOPATHOLOGY LABORATORY at [address] JEWEL WAXER Clinical History A-C: LPLK vs ISK R/O NMSC. 1:03 PM [facility] DERMATOPATHOLOGY LABORATORY Gross Description Specimen A: Received is one formalin filled container labeled with the patient's name and designated left chest. The specimen consists of a shave measuring [id number]. Jar 0. Specimen B: Received is one formalin filled container labeled with the patient's name and designated right ant LE. The specimen consists of a shave measuring 5l4p6fj. Jar 0. Specimen C: Received is one formalin filled container labeled with the patient's name and designated right med LE. The specimen consists of a shave measuring [id number]. Jar 0. 1:03 PM [facility] DERMATOPATHOLOGY LABORATORY Microscopic Description Specimen [...] keratinocytes and scattered necrotic keratinocytes. 1:03 PM [facility] DERMATOPATHOLOGY LABORATORY Disclaimer An external [...] purposes. Billing Codes Specimen Charges Stain Charges 45501 99332 13347 1 1 1 9 1:03 PM JEWEL WAXER DERMATOPATHOLOGY LABORATORY Embedded Images 9 1:03 PM JEWEL WAXER DERMATOPATHOLOGY LABORATORY Pathology/Cytology TISSUE SPECIMEN FROM SKIN / Unknown 05/08/2019 05/08/2019 12:27 PM JEWEL WAXER Miscellaneous samples (specimen) TISSUE SPECIMEN FROM SKIN / Unknown 05/08/2019 05/08/2019 12:27 PM JEWEL WAXER Miscellaneous samples (specimen) TISSUE SPECIMEN FROM SKIN / Unknown 05/08/2019 05/08/2019 12:27 PM JEWEL WAXER us Ela Covington DO LAB - PATHOLOGY/CYTOLOGY ORDERABLES Final Result DERMATOPATHOLOGY LABORATORY [facility] - Department of Dermatology [facility] 5th Floor [address] [phone] documented in this encounter Visit Diagnoses Not on filedocumented in this encounter Care Teams Furniture And Bedding Inspector Relationship Specialty Start Date End Date Bakari Monzon MD PCP - General Family Medicine 05/18/18 documented as of this encounter
--- OUTSIDE RECORDS SUMMARY | 2025-04-25 02:04 | XMS_ITS | Encounter Summary ---
Author Organization [facility] Address [address] [place] [address] Care Team Providers Care Automotive General Sales Manager Name Role Phone Unavailable Primary Care Provider Unavailabl e Encounter Details Date Type Department Care Team (Latest Contact Info) Description 10/21/2004 Outpatient Historical HIS [facility] Raman Garcia MD NO ADDRESS ON FILE POSTTRAUM WOUND INFEC NEC (Primary Dx) Social History Tobacco Use Types Packs/Day Years Used Date Smoking Tobacco: Never Assessed Comments Unknown Sex and Gender Information Value Date Recorded Sex Assigned at Not on file Legal Sex Female 4:41 AM GRINDING WHEEL FACER Gender Identity Not on file Sexual Orientation Not on file documented as of this encounter Plan of Treatment Not on file documented as of this encounter Visit Diagnoses Diagnosis 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
--- NOTE | 2025-04-25 07:22 | WPDHPUPDATE1 ---
History and Physical Update Update Date/Time: 04/25/25 07:22 History and Physical has been reviewed, including an updated exam of the patient. There are NO changes in the patient's condition. Risks, benefits, and alternatives have been discussed and questions answered. Patient agrees to proceed with procedure.
[2025-04-25] MEDS: LACTATED RINGERS 1,000 ML 30 ML IV CONT ×2 (11:30→14:56)
[2025-04-25] MEDS: ACETAMINOPHEN 500 MG TABLET 1000 MG PO (11:48)
[2025-04-25] MEDS: KETOROLAC 15 MG/ML VIAL (*BKC) IV PUSH (11:48)
--- NOTE | 2025-04-25 13:18 | WPDANESEPPF ---
Anes - Initial Pre Proc Eval Procedure: Operation Date: 04/25/25 13:00 Proposed Procedures p Removal Hardware Right Ankle - Daniel Magana MD Date/Time: 04/25/25 13:18 Surgeon: Daniel Magana MD Pre Op Diagnosis: painful hardware right ankle Patient Data Age: 70 Gender: F Height: 1.83 m Weight: 75.5 kg Last Vital Signs Temp 36.2 C L 04/25/25 11:10 Pulse 63 04/25/25 11:10 BP 141/74 H 04/25/25 11:10 Pulse Ox 97 04/25/25 11:10 O2 Del Method Room Air 04/25/25 11:10 Allergies Allergy/AdvReac Type Severity Reaction Status Date / Time No Known Allergies Allergy Verified 04/25/25 12:16 Home Medications ?Medication ?Instructions ?Recorded ?Confirmed ?Type mecobalamin (vitamin B12) 1,000 1,000 mcg PO DAILY 03/16/23 04/25/25 History mcg lozenges omega 0-kaj-vkc-fish oil 1,200 mg 1 cap PO DAILY 03/16/23 04/25/25 History (144 mg-216 mg) capsule (Fish Oil) ferrous sulfate 325 mg (65 mg 325 mg PO DAILY #30 tabs 03/17/23 04/25/25 Rx iron) tablet (Feosol) ascorbate calcium (vitamin C) 500 500 mg PO DAILY 09/30/23 04/25/25 History mg tablet magnesium 500 mg tablet 500 mg PO DAILY 01/26/24 04/25/25 History rohpqhjd-unbd-qwvw 8 mg-folic 400 1 tablet PO DAILY 01/26/24 04/25/25 History mcg-K 50 mcg-lutein 300 mcg tablet (Multivitamin Women 50 Plus) calcium 500 mg (as 2 tablet PO DAILY 04/11/24 04/25/25 History carbonate)-vitamin D3 3.125 mcg (125 unit) tablet lisinopril 10 mg tablet 10 mg PO DAILY #90 tabs 08/06/24 04/12/25 Rx levothyroxine 88 mcg tablet See Rx Instructions .Route 12/17/24 04/25/25 Rx .COMPLEX #100 tabs hydrocodone 5 mg-acetaminophen 325 1 - 2 tablet PO Q4-6H PRN pain 7 04/25/25 Rx mg tablet days #30 tabs ECG: SB 57 Patient hx anesthesia problems: none Family hx anesthesia problems: none Results Review: All pre-operative results and documents have been reviewed as part of the pre-operative evaluation. [facility] Past Medical History Medical History Age-related osteoporosis with current pathological fracture, right ankle and foot, subsequent encounter for fracture with routine healing Fracture of lateral malleolus of right ankle Anemia Hypothyroidism Surgical History Surgical History Status post ORIF of fracture of ankle (~01/30/24) Lateral malleolar History of surgical removal of skin lesion basal cell cancer left back 04/09/2011 History of D&C 1985 H/O colonoscopy Family History Family History Father Hypertension Atrial fibrillation Mother Hypertension Congestive heart failure COPD (chronic obstructive pulmonary disease) Crohn's disease Grandparent Acute myocardial infarction Social History Social History Smoking status: Never smoker Alcohol intake: current Drinks per week: 3 Substance use: never Substance use type: does not use Do You Feel Safe in your Home?: Yes Lack of Transportation: No Lack of Food: Never True Current Housing: I Have Housing Concerned About Future Housing: No Difficulty Paying Gas/Electric Bills: No Difficulty Paying for Meds: No Currently Unemployed: No Education: Bachelor's Degree Difficulty w/ Childcare or Family Care: No Living arrangements: with family Occupation/Education: retired Gender identity (if verbalized by the patient): Female Sexual Orientation (if Verbalized by the Patient): Straight or Heterosexual Spiritual care concerns: No Anes - Eval Final PreProcedure Day of Procedure 04/25/25 13:18 Patient weight: normal Heart: regular rate and rhythm Lungs: normal air movement Airway: Mallampati scale class II Neurological: alert and oriented Last oral intake: >/= 8 hours ASA classification: II Emergent: no Anesthetic plan: proceed Anesthesia type and monitoring: general LMA Other findings: Htn, on lisinopril, last dose 04/24 Results Review: All pre-operative results and documents have been reviewed as part of the pre-operative evaluation. Informed Consent: The patient's anesthetic plan and its attendant risks and benefits were discussed with the patient/family/POA. Questions were solicited and answers provided to the satisfaction of the patient/family/POA.
[2025-04-25] MEDS: ceFAZolin 2 GM in SODIUM CHLORIDE 0.9% IV 50 ML 100 ML IVPB (13:26)
--- NOTE | 2025-04-25 14:01 | SUR.OPER ---
1 plate and 7 screws removed
--- NOTE | 2025-04-25 14:02 | SUR.OPER ---
1 plate and 7 screws removed
--- NOTE | 2025-04-25 14:36 | P.OP_ITS ---
Procedure Note - Detailed Date of Procedure 04/25/25 Pre-op Diagnosis Painful hardware right ankle, status post ORIF distal fibula Post-op Diagnosis Same Procedure Performed Deep hardware removal, right fibula plate and screws Surgeon Daniel Magana MD Enlisted Advisor Naomie Villagran PA-C Anesthesia General Description of Procedure A general anesthetic was administered. Preoperative antibiotics given. The limb was prepped and draped in the usual sterile fashion. The limb was exsanguinated and the tourniquet inflated to 300 mm Hg. The previous lateral malleolus incision was incised sharply. The hardware was exposed with the periosteal elevator and removed. 20 mL of% Marcaine with epinephrine was injected into the soft tissues. The tourniquet was released and hemostasis confirmed. Closure with interrupted 3-0 Monocryl deep, and interrupted horizontal mattress Nylon. Steri strips were placed. A sterile bulky dressing with light compression wrap was applied. Implants Removal of Arthrex stainless steel lateral fibula periarticular plate and 7 screws. Estimated Blood Loss 2 Drains No Packing No Pathology None sent Complications No immediate complications Condition Stable Disposition PACU [facility] Billing Surgery - Charge Forward: Surgery Billing
[2025-04-25] MEDS: ONDANSETRON INJ 4 MG/2 ML VIAL IV PUSH (15:50)
== END 2025-04-25 16:22 | disposition home or self-care (01) ==
PROVIDERS: PCP Family Medicine; Visit Provider Orthopaedic Surgery
PROC: (CPT 20680; principal; 2025-04-25 13:00)
DX: T84.84XA Pain due to internal orthopedic prosthetic devices, implants and grafts, initial encounter (principal); Y83.1 Surgical operation with implant of artificial internal device as the cause of abnormal reaction of the patient, or of later complication, without mention of misadventure at the time of the procedure; I10 Essential (primary) hypertension; D64.9 Anemia, unspecified; E03.9 Hypothyroidism, unspecified; Z79.891 Long term (current) use of opiate analgesic; Z98.890 Other specified postprocedural states; Z87.81 Personal history of (healed) traumatic fracture; Z85.828 Personal history of other malignant neoplasm of skin; Z82.49 Family history of ischemic heart disease and other diseases of the circulatory system
CPT/HCPCS: 20680; 99199; J0690; A9270; J1100; J1171; J1885; J2003; J2250; J2405; J2704; J3010; J7120